=== PATIENT | female | born 1950 | race Caucasian/White ===

== ENCOUNTER → 2016-07-07 | Outpatient (CLI) | payer BC ==
[~2016-07-07] MED LIST: ASPCH81X PO; CLTP PO; HYDC25 PO; LEVOTHYROXIN PO; LISI40TA PO; MULT-506 PO; SIMV20TA2 PO
== END | disposition home or self-care (01) ==
LOC: C.PATHSPEC 15:58
PROVIDERS: ATTEND Obstetrics & Gynecology
DX: N90.4 Leukoplakia of vulva (principal)

== ENCOUNTER 2020-07-27 20:54 | Inpatient (IN) ==
[2020-07-27] MEDS ORDERED: ONDANSETRON INJ 2 MG/ML 2 ML VIAL IV STA (21:06)
[2020-07-27] MEDS ORDERED: fentaNYL citrate 100 MCG/2 ML VIAL IV ONE (21:06)
--- NOTE | 2020-07-27 21:30 | Emergency Department Note ---
Impression & Plan Fall, Closed fracture of right hip ED Provider Note Provider: Giancarlo Gray MD DATE OF SERVICE: 07/27/2020 CHIEF COMPLAINT: HISTORY OF PRESENT ILLNESS: Patient is a 70-year-old female with a history of hypothyroidism, hypertension, and hyperlipidemia presenting here today after a ground-level fall. Patient states he was walking back from neighbors and slipped on the ice and fell and heard a crack in her right hip. Was unable to ambulate after this. Denies drinking or loss conscious. Denies injury to the other extremities either upper or the left leg. Patient denies any numbness in her feet. Patient denies significant shortness of breath or chest pain. She denies abdominal pain but states she does feel nauseous. Did receive some fentanyl prior to arrival and states she only has significant pain in her right hip if she tries to move it. At rest no significant pain. REVIEW OF SYSTEMS: A total of 10 review of systems was obtained and negative except as stated above in the HPI. PAST MEDICAL HISTORY: As noted above MEDICATIONS: Reviewed home medication list includes 81 mg aspirin SOCIAL HISTORY: Non-smoker, lives at home PHYSICAL EXAM: GENERAL: alert and oriented in no acute distress on stretcher with the right leg supported on pillows appears somewhat uncomfortable Head: normocephalic and atraumatic EYES: No injection, discharge or icterus. NECK: Trachea midline. Supple. LUNGS: Airway patent. No retractions. Breath sounds clear with good air entry bilaterally. HEART: Regular rate and rhythm. No chest wall tenderness ABDOMEN: Soft and non-tender, without guarding or rebound. Stable pelvis to palpation. SKIN: Acyanotic, warm, dry, without rashes EXTREMITIES: Without swelling, tenderness or deformity except for pain with ROM around the right hip. No obvious deformity of the right knee or lower leg or foot. 2+ right DP pulse. NEUROLOGICAL: No aphasia. No facial droop or slurred speech. . Sensation to gross touch normal in the bilateral lower extremities. EK beats per normal sinus rhythm. No PVC or PAC. No acute ST segment elevation noted. Lateral T wave inversions noted. QTc 442 CONTINUOUS CARDIAC MONITORING: was ordered and showed a heart rate of 72 bpm in normal sinus rhythm GCS 15. Patient's laboratory studies and imaging reviewed. Differential includes Fracture, dislocation, contusion, intra-abdominal, pneumothorax, intrathoracic, intracranial, neurologic, compartment syndrome, rhabdomyolysis, as well as other pathologies. IMPRESSION/MEDICAL DECISION MAKING: Patient presents after fall without striking her head complaining of right hip pain with movement. Neurovascular intact in this leg. Imaging obtained of the femur and pelvis. Evidence of right greater trochanter fracture. No open wound noted. No other significant deformity of the right lower leg or the other extremities noted. Patient not strike her head and I doubt acute intracranial injury. Benign abdomen otherwise. Pelvis appears stable on exam. Do not believe we need additional CT imaging. No prior orthopedic history on-call orthopedics was alerted to what appears to be a right greater trochanteric fracture. Patient requires admission for surgical repair. Discussed with Dr. Brown she states she has no known relationship with the orthopedics group and was okay utilizing the on-call group ([facility]). Rodgers will be placed. Believe the nausea is experiencing secondary to the pain medicines he received both here and prior to arrival. Given some Tylenol here. With the patient's permission her's daughter was updated via phone. DIAGNOSIS: Fall, right hip fracture DISPOSITION: Hospitalist will evaluate Patient was agreeable with this plan. Past Med/Surg History Medical History (Updated 07/27/20 @ 22:11 by Giancarlo Gray M.D.) Cervical dysplasia Hyperplastic colon polyp 08/2012 colonoscopy Surgical History (Updated 06/05/19 @ 18:14 by Alexy Giraldo III, MD) S/P LEEP (loop electrosurgical excision procedure) Family History Mother Stroke Hypertension Aunt Breast cancer Father Hypertension Social History Smoking Status: Never smoker Hx Alcohol Use: Yes Alcohol type: wine Hx Substance Use: No marital status: Current Living Situation: Spouse current occupational status: retired Feels Safe at Home: Yes Allergies Allergies Allergy/AdvReac Type Severity Reaction Status Date / Time amoxicillin Allergy Mild Rash Verified 07/27/20 21:15 Home Meds Home Medications Medication Instructions Recorded Confirmed aspirin 81 mg chewable tablet 81 mg PO DAILY 06/04/19 07/27/20 timolol maleate 0.25 % eye drops 1 drops OP Q12H ml 06/04/19 07/27/20 ascorbic acid (vitamin C) 500 mg 500 mg PO DAILY 06/06/19 07/27/20 capsule [id number]-V3-swk-Xp-uwiia-mnqd-boron 1 tab PO DAILY 06/06/19 07/27/20 600 mg-200 unit-40 mg-7.5 mg tablet multivitamin 1 tab PO DAILY 06/06/19 07/27/20 turmeric root extract 500 mg 500 mg PO BID 06/08/20 07/27/20 capsule diclofenac sodium 2 gm TOP QID PRN 07/27/20 07/27/20 Previous Rx's Medication Instructions Recorded lisinopril 40 mg tablet 40 mg PO DAILY #90 tab 04/04/19 hydrochlorothiazide 25 mg tablet 25 mg PO DAILY #90 tab 04/15/19 simvastatin 20 mg tablet 20 mg PO QPM #90 tab 12/17/19 levothyroxine 75 mcg tablet 75 mcg PO DAILY #90 tab 05/12/20 Results & Data (ED) Vital Signs Vital Signs - 24 hr 07/27/20 21:08 07/27/20 21:59 07/27/20 22:00 Temperature 36.5 C Temperature Source Oral Pulse Rate 73 73 Pulse Rate [Left Apical] 66 Pulse Rate from SpO2 Sensor 72 Respiratory Rate 20 20 12 Respiratory Effort / Characteristics Non-Labored Spontaneous Respiratory Depth Normal Blood Pressure 159/80 H 137/90 Blood Pressure [Left Arm] 149/67 H Blood Pressure Mean 106 105 Blood Pressure Mean [Left Arm] 94 Pulse Oximetry 98 100 96 Oxygen Delivery Method Room Air Room Air Room Air Sepsis New/Unexplained Change in Mental Status N/A Sepsis Action Taken by Nursing No Action Required 07/27/20 22:30 07/27/20 23:00 Temperature Temperature Source Pulse Rate 64 66 Pulse Rate [Left Apical] Pulse Rate from SpO2 Sensor 65 Respiratory Rate 14 14 Respiratory Effort / Characteristics Respiratory Depth Blood Pressure 130/63 112/57 L Blood Pressure [Left Arm] Blood Pressure Mean 85 75 Blood Pressure Mean [Left Arm] Pulse Oximetry 100 99 Oxygen Delivery Method Room Air Room Air Sepsis New/Unexplained Change in Mental Status Sepsis Action Taken by Nursing Laboratory Data Result diagrams: 07/27/20 21:49 07/27/20 21:49 Lab Results 07/27/20 07/27/20 07/27/20 Range/Units 21:49 21:49 21:49 WBC 9.89 (4.8-10.8) K/uL RBC 4.16 L (4.2-5.4) M/uL Hgb 13.5 (12.0-16.0) g/dL Hct 39.7 (37-47) % MCV 95.4 (80-100) fL MCH 32.5 (25-34) pg MCHC 34.0 (32-36) g/dL RDW Std Deviation 47.1 H (36.4-46.3) fL RDW Coeff of [place] 13.6 (11.5-14.5) % Plt Count 272 (130-400) K/uL MPV 10.7 H (7.4-10.4) fL Immature Gran % (Auto) 0.1 % Neut % (Auto) 82.6 % Lymph % (Auto) 12.4 % [place] % (Auto) 4.0 % Eos % (Auto) 0.5 % Baso % (Auto) 0.4 % Neut # (Auto) 8.16 H (1.4-6.5) K/uL Lymph # (Auto) 1.23 (1.2-3.4) K/uL [place] # (Auto) 0.40 (0.11-0.59) K/uL Eos # (Auto) 0.05 (0-0.5) K/uL Baso # (Auto) 0.04 (0-0.2) K/uL Immature Gran # (Auto) 0.01 (0.00-0.02) K/uL PT 10.3 (9.0-12.0) Seconds INR 1.0 (0.9-1.1) APTT 20.4 L (21.0-31.0) Seconds PTT Ratio 0.7 Sodium (136-145) mmol/L Potassium (3.5-5.1) mmol/L Chloride (98-107) mmol/L Carbon Dioxide (21-32) mmol/L Anion Gap (3-11) BUN (7-18) mg/dl Creatinine (0.6-1.2) mg/dl Est Cr Clr Drug Dosing ml/min Est GFR ( Amer) Est GFR (Non-Af Amer) BUN/Creatinine Ratio (10-20) Glucose (70-99) mg/dl Calcium (8.5-10.1) mg/dl Urine Color Urine Appearance (Clear) Urine pH (4.5-7.5) Ur Specific [place] (1.000-1.030) Urine Protein (Negative) Urine Glucose (UA) (Negative) Urine Ketones (Negative) Urine Blood (Negative) Urine Nitrite (Negative) Urine Bilirubin (Negative) Urine Urobilinogen (Negative) Ur Leukocyte Esterase (Negative) COVID-19 Eval Order Blood Type A Positive Antibody Screen NEGATIVE 07/27/20 07/27/20 07/27/20 Range/Units 21:49 22:05 22:20 WBC (4.8-10.8) K/uL RBC (4.2-5.4) M/uL Hgb (12.0-16.0) g/dL Hct (37-47) % MCV (80-100) fL MCH (25-34) pg MCHC (32-36) g/dL RDW Std Deviation (36.4-46.3) fL RDW Coeff of [place] (11.5-14.5) % Plt Count (130-400) K/uL MPV (7.4-10.4) fL Immature Gran % (Auto) % Neut % (Auto) % Lymph % (Auto) % [place] % (Auto) % Eos % (Auto) % Baso % (Auto) % Neut # (Auto) (1.4-6.5) K/uL Lymph # (Auto) (1.2-3.4) K/uL [place] # (Auto) (0.11-0.59) K/uL Eos # (Auto) (0-0.5) K/uL Baso # (Auto) (0-0.2) K/uL Immature Gran # (Auto) (0.00-0.02) K/uL PT (9.0-12.0) Seconds INR (0.9-1.1) APTT (21.0-31.0) Seconds PTT Ratio Sodium 141 (136-145) mmol/L Potassium 3.3 L (3.5-5.1) mmol/L Chloride 106 (98-107) mmol/L Carbon Dioxide 24 (21-32) mmol/L Anion Gap 11.0 (3-11) BUN 15 (7-18) mg/dl Creatinine 0.87 (0.6-1.2) mg/dl Est Cr Clr Drug Dosing 55.5 ml/min Est GFR ( Amer) 77.7 Est GFR (Non-Af Amer) 67.0 BUN/Creatinine Ratio 17.8 (10-20) Glucose 109 H (70-99) mg/dl Calcium 8.4 L (8.5-10.1) mg/dl Urine Color Yellow Urine Appearance Clear (Clear) Urine pH 5.0 (4.5-7.5) Ur Specific [place] 1.014 (1.000-1.030) Urine Protein Negative (Negative) Urine Glucose (UA) Negative (Negative) Urine Ketones Negative (Negative) Urine Blood Negative (Negative) Urine Nitrite Negative (Negative) Urine Bilirubin Negative (Negative) Urine Urobilinogen Negative (Negative) Ur Leukocyte Esterase Trace H (Negative) COVID-19 Eval Order Covid19 [facility] Blood Type Antibody Screen Administered Medications Discontinued Medications Fentanyl Citrate (Fentanyl Citrate 100 Mcg/2 Ml Vial) 25 mcg IV NOW ONE Stop: 07/27/20 21:07 Last Admin: 07/27/20 21:18 Dose: 25 mcg Documented by: [id number] Acetaminophen (Ofirmev) 1,000 mg in 100 mls @ 400 mls/hr IV NOW STA Stop: 07/27/20 22:19 Last Infusion: 07/27/20 23:01 Dose: 0 mls/hr Documented by: [id number] Admin: 07/27/20 22:35 Dose: 400 mls/hr Documented by: [id number] Ondansetron HCl (Ondansetron Inj 2 Mg/Ml 2 Ml Vial) 4 mg IV NOW STA Stop: 07/27/20 21:07 Last Admin: 07/27/20 21:17 Dose: 4 mg Documented by: [id number] Discharge Plan Visit Data Chief Complaint: Hip Pain Stated Complaint: FALL/rt. HIP PAIN W/ DEFORMITY ED Provider: Giancarlo Gray Discharge Problem: Fall, Closed fracture of right hip Patient Disposition: Being Evaluated by Hospitalist Forms Stand Alone Forms: My [facility] Prescriptions Prescriptions: No Action lisinopril 40 mg tablet 40 mg PO DAILY Qty: 90 RF: 3 hydrochlorothiazide 25 mg tablet 25 mg PO DAILY Qty: 90 RF: 3 simvastatin 20 mg tablet 20 mg PO QPM Qty: 90 RF: 3 levothyroxine 75 mcg tablet 75 mcg PO DAILY Qty: 90 RF: 3 aspirin 81 mg tablet,chewable 81 mg PO DAILY RF: 0 timolol maleate 0.25 % drops 1 drops OP Q12H RF: 0 Ww-A4-how-cjtu-tug-qmdj-bor [id number] id-feed-hu-mg tablet 1 tab PO DAILY RF: 0 ascorbic acid (vitamin C) 500 mg capsule 500 mg PO DAILY RF: 0 multivitamin [Daily Multi-Vitamin] tablet 1 tab PO DAILY RF: 0 turmeric root extract 500 mg capsule 500 mg PO BID RF: 0 diclofenac sodium 1 % gel 2 gm TOP QID PRN (Reason: Pain) RF: 0 Referrals Referrals: Alexy Giraldo III, MD [Primary Care Provider] - Discharge Problem: Fall Qualifiers: Encounter type: initial encounter Qualified Code(s): W19.XXXA - Unspecified fall, initial encounter Closed fracture of right hip Qualifiers: Encounter type: initial encounter Qualified Code(s): S72.001A - Fracture of unspecified part of neck of right femur, initial encounter for closed fracture
[2020-07-27] MEDS ORDERED: ACETAMINOPHEN 1,000 MG/100 ML VIAL IV STA (22:05)
[2020-07-27 22:07] LABS: Basophils # (auto) 0.04 K/uL (0-0.2); Basophils % (auto) 0.4 %; Eosinophils # (auto) 0.05 K/uL (0-0.5); Eosinophils % (auto) 0.5 %; Hematocrit (blood only) 39.7 % (37-47); Hemoglobin 13.5 g/dL (12.0-16.0); Immature Granulocytes # (auto) 0.01 K/uL (0.00-0.02); Immature Granulocytes % (auto) 0.1 %; Lymphocytes # (auto) 1.23 K/uL (1.2-3.4); Lymphocytes % (auto) 12.4 %; Mean Corpuscular Hemoglobin 32.5 pg (25-34); Mean Corpuscular Volume 95.4 fL (80-100); Mean Platelet Volume 10.7 fL (7.4-10.4); Neutrophils # (auto) 8.16 K/uL (1.4-6.5); Neutrophils % (auto) 82.6 %; Platelet Count 272 K/uL (130-400); RDW Coefficient of Variation 13.6 % (11.5-14.5); RDW Standard Deviation 47.1 fL (36.4-46.3); Red Blood Count 4.16 M/uL (4.2-5.4); White Blood Count 9.89 K/uL (4.8-10.8)
[2020-07-27 22:16] LABS: Partial Thromboplastin Ratio 0.7; Partial Thromboplastin Time 20.4 Seconds (21.0-31.0); Prothrombin Time 10.3 Seconds (9.0-12.0)
[2020-07-27 22:26] LABS: BUN Creatinine Ratio 17.8 (10-20); Calcium 8.4 mg/dl (8.5-10.1); Creatinine Clr Calc Pharmacy 55.5 ml/min; Est GFR (African American) 77.7; Potassium 3.3 mmol/L (3.5-5.1)
[2020-07-27 23:05] LABS: Appearance Urine Clear (Clear); Bacteria Urine Automated Negative (Negative); Bilirubin Urine Negative (Negative); Blood Urine Negative (Negative); Color Urine Yellow; Epithelial Cell Urine Auto 20-30 /lpf (0-5); Glucose Urine UA Negative (Negative); Ketones Urine Negative (Negative); Leukocyte Esterase Urine Trace (Negative); Nitrite Urine Negative (Negative); Protein Urine Negative (Negative); RBC Urine Automated 0-4 /hpf (0-4); Specific Gravity Urine 1.014 (1.000-1.030); Urobilinogen Urine Negative (Negative)
--- NOTE | 2020-07-27 23:42 | History & Physical Report ---
Date of Service July 27, 2020 Assessment & Plan (1) Closed fracture of right hip: Admit to medical surgical floor Acetaminophen 650 mg p.o. every 6 hours as needed mild pain or temperature [place] 5/325 1 p.o. every 4 as needed moderate pain Dilaudid 0.25-0.5 mg IV every 3 hours as needed severe pain Geriatric hip fracture protocol Orthopedic surgery has been consulted from the ED Present on Admission?: Yes (2) Fall: Status post mechanical fall on the snow and ice. Patient is typically very physically active Present on Admission?: Yes (3) Impaired fasting glucose: Glucose 109 upon admission. Would not perform blood sugar checks unless blood sugar is elevated in morning laboratories Present on Admission?: Yes (4) Hypertension: Hold aspirin, and HCTZ Continue lisinopril at reduced dose from 40 to 20 mg p.o. daily with hold para meters Present on Admission?: Yes (5) Hypercholesteremia: Continue simvastatin 20 mg every evening Present on Admission?: Yes (6) Hypothyroidism: Continue levothyroxine sodium 75 mcg daily Present on Admission?: Yes History of Present Illness Chief Complaint: The patient presents to the emergency department after she slipped and fell while walking, sustaining immediate right hip pain. Primary Care Provider: Alexy Giraldo MD The patient is a 70-year-old female with a past medical history including impaired fasting glucose, hypothyroidism, hypertension, hypercholesterolemia and glaucoma. She was walking outside on the snow after visiting with a friend, slipped and fell, landed on her right hip, and sustained immediate pain. X-rays in the emergency department showed a closed right hip fracture. Allergies Allergy/AdvReac Type Severity Reaction Status Date / Time amoxicillin Allergy Mild Rash Verified 07/27/20 21:15 Home Medications Medication Instructions Recorded Confirmed Type lisinopril 40 mg tablet 40 mg PO DAILY #90 tab 04/04/19 07/27/20 Rx hydrochlorothiazide 25 mg tablet 25 mg PO DAILY #90 tab 04/15/19 07/27/20 Rx aspirin 81 mg chewable tablet 81 mg PO DAILY 06/04/19 07/27/20 History timolol maleate 0.25 % eye drops 1 drops OP Q12H ml 06/04/19 07/27/20 History ascorbic acid (vitamin C) 500 mg 500 mg PO DAILY 06/06/19 07/27/20 History capsule hkmcswt-L2-pbq-Ge-lptio-xljx-boron 1 tab PO DAILY 06/06/19 07/27/20 History 600 mg-200 unit-40 mg-7.5 mg tablet multivitamin 1 tab PO DAILY 06/06/19 07/27/20 History simvastatin 20 mg tablet 20 mg PO QPM #90 tab 12/17/19 07/27/20 Rx levothyroxine 75 mcg tablet 75 mcg PO DAILY #90 tab 05/12/20 07/27/20 Rx turmeric root extract 500 mg 500 mg PO BID 06/08/20 07/27/20 History capsule diclofenac sodium 2 gm TOP QID PRN 07/27/20 07/27/20 History Past Med/Surg History Medical History (Updated 07/27/20 @ 22:11 by Giancarlo Gray M.D.) Cervical dysplasia Hyperplastic colon polyp 08/2012 colonoscopy Surgical History (Updated 06/05/19 @ 18:14 by Alexy Giraldo III, MD) S/P LEEP (loop electrosurgical excision procedure) Family History Mother Stroke Hypertension Aunt Breast cancer Father Hypertension Social History Smoking Status: Never smoker Hx Alcohol Use: Yes Alcohol type: wine Hx Substance Use: No Preferred Language: Polish Communication Ability: Effective Assistant Technician Required: No Beliefs That Will Affect Care: None marital status: Current Living Situation: Alone current occupational status: retired Feels Safe at Home: Yes Assistive Devices: Glasses Review of Systems Review of Systems: The patient denies chest pain, palpitations, shortness of breath, dyspnea on exertion, cough, lower extremity swelling, sore throat, fevers, chills, sweats, fatigue, nausea, vomiting, diarrhea , constipation, abdominal pain, pelvic pain, blood in urine or stool, dysuria, urinary frequency or urgency, lightheadedness, dizziness, headache, memory loss, loss of consciousness, rash, abnormal bruising or bleeding, generalized weakness, numbness or tingling in arms left leg, generalized arthralgias or myalgias, back or neck pain, or night sweats. The review of systems is otherwise negative other than for that already noted above, and at least 10 systems have been reviewed. Physical Exam Physical Exam: The patient is awake, alert and oriented 3, well developed and well nourished, normocephalic and atraumatic, lying in bed and in mild acute distress secondary to right hip pain HEENT--PERRL, EOMI, mucous membranes and oropharynx normal. Neck--supple. No JVD. No bruits. Thyroid normal, trachea midline, no adenopathy. Heart--normal S1 and S2. No murmurs, rubs or gallops. Lungs--clear bilaterally, no respiratory distress, no accessory muscle use. Abdomen--normal bowel sounds and soft. Nontender. Nondistended, no hernias or masses, no organomegaly. Extremities--no cyanosis or clubbing. No edema. Dermatologic--normal skin turgor, normal color, no abnormal lymph nodes, no rash. Neurologic--cranial nerves II through XII grossly intact. Rheumatologic--limited exam due to hip pain Psychiatric--normal affect. Results & Data Results & Data ([facility]) Vital Signs (Past 12 Hours) Vital Signs Temp Pulse Pulse Resp BP BP Pulse Ox 07/27/20 23:00 66 14 112/57 L 99 07/27/20 22:30 64 14 130/63 100 07/27/20 22:00 73 12 137/90 96 07/27/20 21:59 66 20 149/67 H 100 07/27/20 21:08 97.7 F 73 20 159/80 H 98 Laboratory Results Laboratory Results WBC 9.89 K/uL (4.8-10.8) 07/27/20 21:49 RBC 4.16 M/uL (4.2-5.4) L 07/27/20 21:49 Hgb 13.5 g/dL (12.0-16.0) 07/27/20 21:49 Hct 39.7 % (37-47) 07/27/20 21:49 MCV 95.4 fL (80-100) 07/27/20 21:49 MCH 32.5 pg (25-34) 07/27/20 21:49 MCHC 34.0 g/dL (32-36) 07/27/20 21:49 RDW Std Deviation 47.1 fL (36.4-46.3) H 07/27/20 21:49 RDW Coeff of [place] 13.6 % (11.5-14.5) 07/27/20 21:49 Plt Count 272 K/uL (130-400) 07/27/20 21:49 MPV 10.7 fL (7.4-10.4) H 07/27/20 21:49 Immature Gran % (Auto) 0.1 % 07/27/20 21:49 Neut % (Auto) 82.6 % 07/27/20 21:49 Lymph % (Auto) 12.4 % 07/27/20 21:49 [place] % (Auto) 4.0 % 07/27/20 21:49 Eos % (Auto) 0.5 % 07/27/20 21:49 Baso % (Auto) 0.4 % 07/27/20 21:49 Neut # (Auto) 8.16 K/uL (1.4-6.5) H 07/27/20 21:49 Lymph # (Auto) 1.23 K/uL (1.2-3.4) 07/27/20 21:49 [place] # (Auto) 0.40 K/uL (0.11-0.59) 07/27/20 21:49 Eos # (Auto) 0.05 K/uL (0-0.5) 07/27/20 21:49 Baso # (Auto) 0.04 K/uL (0-0.2) 07/27/20 21:49 Immature Gran # (Auto) 0.01 K/uL (0.00-0.02) 07/27/20 21:49 PT 10.3 Seconds (9.0-12.0) 07/27/20 21:49 INR 1.0 (0.9-1.1) 07/27/20 21:49 APTT 20.4 Seconds (21.0-31.0) L 07/27/20 21:49 PTT Ratio 0.7 07/27/20 21:49 Sodium 141 mmol/L (136-145) 07/27/20 21:49 Potassium 3.3 mmol/L (3.5-5.1) L 07/27/20 21:49 Chloride 106 mmol/L (98-107) 07/27/20 21:49 Carbon Dioxide 24 mmol/L (21-32) 07/27/20 21:49 Anion Gap 11.0 (3-11) 07/27/20 21:49 BUN 15 mg/dl (7-18) 07/27/20 21:49 Creatinine 0.87 mg/dl (0.6-1.2) 07/27/20 21:49 Est Cr Clr Drug Dosing 55.5 ml/min 07/27/20 21:49 Est GFR ( Amer) 77.7 07/27/20 21:49 Est GFR (Non-Af Amer) 67.0 07/27/20 21:49 BUN/Creatinine Ratio 17.8 (10-20) 07/27/20 21:49 Glucose 109 mg/dl (70-99) H 07/27/20 21:49 Calcium 8.4 mg/dl (8.5-10.1) L 07/27/20 21:49 Urine Color Yellow 07/27/20 22:20 Urine Appearance Clear (Clear) 07/27/20 22:20 Urine pH 5.0 (4.5-7.5) 07/27/20 22:20 Ur Specific [place] 1.014 (1.000-1.030) 07/27/20 22:20 Urine Protein Negative (Negative) 07/27/20 22:20 Urine Glucose (UA) Negative (Negative) 07/27/20 22:20 Urine Ketones Negative (Negative) 07/27/20 22:20 Urine Blood Negative (Negative) 07/27/20 22:20 Urine Nitrite Negative (Negative) 07/27/20 22:20 Urine Bilirubin Negative (Negative) 07/27/20 22:20 Urine Urobilinogen Negative (Negative) 07/27/20 22:20 Ur Leukocyte Esterase Trace (Negative) H 07/27/20 22:20 Urine WBC (Auto) 1-5 /hpf (0-5) 07/27/20 22:20 Urine RBC (Auto) 0-4 /hpf (0-4) 07/27/20 22:20 U Hyaline Cast (Auto) 5-10 /lpf (0-5) H 07/27/20 22:20 U Epithel Cells (Auto) 20-30 /lpf (0-5) H 07/27/20 22:20 Urine Bacteria (Auto) Negative (Negative) 07/27/20 22:20 COVID-19 Eval Order Covid19 [facility] 07/27/20 22:05 SARS-CoV-2, RNA, NAAT NEGATIVE (NEGATIVE) 07/27/20 22:05 Blood Type A Positive 07/27/20 21:49 Antibody Screen NEGATIVE 07/27/20 21:49 None Code Status & VTE Plan Code Status Full code VTE Prophylaxis Plan VTE Prophylaxis will be ordered: Yes PG Care Time/CCT Total # of Minutes Spent Total Time Spent with Patient: Total time spent is greater than 50% in coordination of care (as documented) at patient's floor/unit and/or counseling patient: Coding Level of Care Code 18598 Initial Inpt Care Lvl 2 Diagnoses Closed fracture of right hip S72.001A Encounter type: initial encounter Fall W19.XXXA Encounter type: initial encounter Impaired fasting glucose R73.01 Hypertension I10 Hypercholesteremia E78.00 Hypothyroidism E03.9 (1) Closed fracture of right hip Encounter type: initial encounter Qualified Code(s): S72.001A - Fracture of unspecified part of neck of right femur, initial encounter for closed fracture (2) Fall Encounter type: initial encounter Qualified Code(s): W19.XXXA - Unspecified fall, initial encounter
[2020-07-28] MEDS ORDERED: HYDROmorphone INJ 0.5 MG/0.5 ML SYR IV PRN (00:39)
[2020-07-28] MEDS ORDERED: NALOXONE HCL 0.4 MG/1 ML VIAL/CARP IV PRN ×3 (00:39→15:23)
[2020-07-28] MEDS ORDERED: bisacodyL 10 MG SUPP PR PRN (00:39)
[2020-07-28] MEDS ORDERED: MAGNESIUM HYDROXIDE SUSP 30 ML UDC PO PRN (00:39)
[2020-07-28] MEDS: HYDROmorphone INJ 0.5 MG/0.5 ML SYR IV PRN ×6 (00:59→23:24)
[2020-07-28] MEDS: LACTATED RINGER'S 1,000 ML IV SCH ×2 (01:01→15:41)
[2020-07-28] MEDS: TIMOLOL GFS 0.5% OPH SOLN 74 DROPS/5 ML BTL OP SCH ×3 (02:01→22:02)
[2020-07-28] MEDS: NSS + 20MEQ KCL 20 MEQ/1,000 ML BAG IV SCH ×2 (05:22→20:09)
[2020-07-28] MEDS: LEVOTHYROXINE SODIUM 75 MCG TABLET PO SCH (05:48)
[2020-07-28] MEDS ORDERED: CLINDAMYCIN 600 MG/54 ML BAG IV SCH (06:00)
[2020-07-28] MEDS: lisinopril 20 MG TAB PO SCH (07:21)
--- NOTE | 2020-07-28 07:33 | XRay Report ---
XR pelvis 1-2V routine, XR femur RT 2V routine CLINICAL HISTORY: fall, R hip pain with movement COMPARISON STUDY: None. FINDINGS: Comminuted and slightly displaced intertrochanteric fracture the proximal right femur. No f racture or dislocation within the pelvis or left hip. Soft tissues are unremarkable. The sacrum appea rs intact. The mid to distal right femur is maintained. IMPRESSION: Comminuted and slightly displaced intertrochanteric fracture of the proximal right femur . ACT 112: Negative or not required by law. Electronically signed by: Clay Brooks M.D. 07/28/2020 7:32 AM
[2020-07-28 07:37] LABS: Basophils # (auto) 0.02 K/uL (0-0.2); Basophils % (auto) 0.3 %; Eosinophils # (auto) 0.02 K/uL (0-0.5); Eosinophils % (auto) 0.3 %; Hematocrit (blood only) 34.1 % (37-47); Hemoglobin 11.6 g/dL (12.0-16.0); Immature Granulocytes # (auto) 0.01 K/uL (0.00-0.02); Immature Granulocytes % (auto) 0.1 %; Lymphocytes # (auto) 1.04 K/uL (1.2-3.4); Lymphocytes % (auto) 13.9 %; Mean Corpuscular Hemoglobin 32.1 pg (25-34); Mean Corpuscular Volume 94.5 fL (80-100); Mean Platelet Volume 10.7 fL (7.4-10.4); Monocytes # (auto) 0.67 K/uL (0.11-0.59); Neutrophils % (auto) 76.4 %; Platelet Count 275 K/uL (130-400); RDW Coefficient of Variation 13.8 % (11.5-14.5); RDW Standard Deviation 47.9 fL (36.4-46.3); Red Blood Count 3.61 M/uL (4.2-5.4); White Blood Count 7.46 K/uL (4.8-10.8)
--- NOTE | 2020-07-28 07:40 | XRay Report ---
XR chest 1V portable HISTORY: Right hip pain. Right hip fracture. Fall. COMPARISON: None. FINDINGS: The lungs are clear. Cardiac silhouette is top normal in size. No pleural effusions. No pne umothorax. IMPRESSION: No acute process. ACT 112: Negative or not required by law. Electronically signed by: Clay Brooks M.D. 07/28/2020 7:39 AM
[2020-07-28 07:57] LABS: Partial Thromboplastin Ratio 0.8; Partial Thromboplastin Time 22.4 Seconds (21.0-31.0); Prothrombin Time 10.5 Seconds (9.0-12.0)
[2020-07-28 08:07] LABS: BUN Creatinine Ratio 22.9 (10-20); Blood Urea Nitrogen 16 mg/dl (7-18); Calcium 8.5 mg/dl (8.5-10.1); Carbon Dioxide 26 mmol/L (21-32); Chloride 107 mmol/L (98-107); Est GFR (African American) 101.5; Est GFR (Non-African American) 87.6; Glucose 88 mg/dl (70-99); Magnesium 2.2 mg/dl (1.8-2.4); Phosphorus 3.8 mg/dl (2.5-4.9); Potassium 4.1 mmol/L (3.5-5.1); Sodium 141 mmol/L (136-145); Troponin I < 0.015 ng/ml (0-0.045)
--- NOTE | 2020-07-28 10:32 | Orthopedic Consultation ---
Date of Consultation July 28, 2020 Assessment & Plan (1) Closed fracture of right hip: Patient will require a trochanteric femoral nailing of the right hip. Dr. Leonardo Parada states that the patient is cleared for surgery. Dr. Brown aware the patient and has reviewed her x-rays. Plan for right TFN this morning. Supervising Physician Co-Signing Physician Notes Patient seen and examined in PACU, agree with above assessment plan Right lower extremity physical exam neurovascular sensory intact +2 dorsalis pedis pulse, short and externally rotated, skin overlying right hip is clean dry and intact. Right unstable intertrochanteric hip fracture The patient is a 70yo female with displaced right intertrochanteric hip fracture sustained after a fall from standing height. The patient was medically stabili zed on 07/28/2020. I indicated the patient for right hip cephalomedullary nail. The patient was informed of the risks and benefits of surgery, which include but not limited to infection, bleeding, blood clots, damage to nerves, vessels, bone and soft tissue, dislocation, leg length discrepancy, malunion, nonunion, failure of the implants, need for additional surgery and . The patient chose to proceed with surgical intervention and informed consent was obtained. 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 As she neared home she inadvertently lost her balance and fell onto her right hip. He states that she heard the bone break and had immediate pain in her hip and groin. She had difficulty ambulating and was brought to the emergency room. There was no loss of consciousness. There was no shortness of breath or chest pain prior to or after the fall. She was seen by the staff and x-rays were taken. It was found that she had an intertrochanteric hip fracture of the right hip. was notified. Patient was admitted under hospitalist service and we have been asked to take care of her hip fracture. Allergies Allergy/AdvReac Type Severity Reaction Status Date / Time amoxicillin Allergy Mild Rash Verified 07/27/20 21:15 Home Medications Medication Instructions Recorded Confirmed Type lisinopril 40 mg tablet 40 mg PO DAILY #90 tab 04/04/19 07/27/20 Rx hydrochlorothiazide 25 mg tablet 25 mg PO DAILY #90 tab 04/15/19 07/27/20 Rx aspirin 81 mg chewable tablet 81 mg PO DAILY 06/04/19 07/27/20 History timolol maleate 0.25 % eye drops 1 drops OP Q12H ml 06/04/19 07/27/20 History ascorbic acid (vitamin C) 500 mg 500 mg PO DAILY 06/06/19 07/27/20 History capsule [id number]-Li-[id number]-kbkr-boron 1 tab PO DAILY 06/06/19 07/27/20 History 600 mg-200 unit-40 mg-7.5 mg tablet multivitamin 1 tab PO DAILY 06/06/19 07/27/20 History simvastatin 20 mg tablet 20 mg PO QPM #90 tab 12/17/19 07/27/20 Rx levothyroxine 75 mcg tablet 75 mcg PO DAILY #90 tab 05/12/20 07/27/20 Rx turmeric root extract 500 mg 500 mg PO BID 06/08/20 07/27/20 History capsule diclofenac sodium 2 gm TOP QID PRN 07/27/20 07/27/20 History Patient History Medical History Cervical dysplasia Hyperplastic colon polyp 08/2012 colonoscopy Surgical History S/P LEEP (loop electrosurgical excision procedure) Family History Mother Stroke Hypertension Aunt Breast cancer maternal aunt Father Hypertension Social History Smoking Status: Never smoker Hx Alcohol Use: Yes Alcohol type: wine Hx Substance Use: No Preferred Language: Swedish Communication Ability: Effective 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 Alert and oriented x3. No acute distress. Pleasant and cooperative. Currently states that her pain is controlled. On examination of her right lower extremity, she has the hip flexed to approximately 60 degrees and externally rotated which states that is the most comfortable position for her. She has good range of motion of her right ankle and toes. No range of motion was attempted with the right knee or hip. She is nontender on palpation of the right knee and there is no swelling noted. Hip is mildly tender on palpation but there is no areas of abrasions or ecchymosis noted. Left lower extremity is within normal limits and is nontender at the hip knee and ankle. Upper extremities are unaffected and she is nontender at the shoulders, elbows and wrists. Range of motion is within normal limits. Distal pulses are equal bilaterally of the upper and lower extremities. She has no pain of the cervical, thoracic, lumbar spine at this time. There is no gross motor or sensory loss seen at this time. Results & Data ([facility]) Vital Signs (Past 12 Hours) Vital Signs Temp Pulse Pulse Resp BP BP Pulse Ox 07/28/20 07:10 36.9 C 77 16 173/77 H 97 07/28/20 00:48 36.6 C 71 18 152/71 H 99 07/28/20 00:00 65 15 107/51 L 98 07/27/20 23:30 64 15 103/45 L 98 07/27/20 23:00 66 14 112/57 L 99 07/27/20 22:30 64 14 130/63 100 Laboratory Results Laboratory Results WBC 7.46 K/uL (4.8-10.8) 07/28/20 06:50 RBC 3.61 M/uL (4.2-5.4) L 07/28/20 06:50 Hgb 11.6 g/dL (12.0-16.0) L 07/28/20 06:50 Hct 34.1 % (37-47) L 07/28/20 06:50 MCV 94.5 fL (80-100) 07/28/20 06:50 MCH 32.1 pg (25-34) 07/28/20 06:50 MCHC 34.0 g/dL (32-36) 07/28/20 06:50 RDW Std Deviation 47.9 fL (36.4-46.3) H 07/28/20 06:50 RDW Coeff of Carolyn 13.8 % (11.5-14.5) 07/28/20 06:50 Plt Count 275 K/uL (130-400) 07/28/20 06:50 MPV 10.7 fL (7.4-10.4) H 07/28/20 06:50 Immature Gran % (Auto) 0.1 % 07/28/20 06:50 Neut % (Auto) 76.4 % 07/28/20 06:50 Lymph % (Auto) 13.9 % 07/28/20 06:50 Graves % (Auto) 9.0 % 07/28/20 06:50 Eos % (Auto) 0.3 % 07/28/20 06:50 Baso % (Auto) 0.3 % 07/28/20 06:50 Neut # (Auto) 5.70 K/uL (1.4-6.5) 07/28/20 06:50 Lymph # (Auto) 1.04 K/uL (1.2-3.4) L 07/28/20 06:50 Graves # (Auto) 0.67 K/uL (0.11-0.59) H 07/28/20 06:50 Eos # (Auto) 0.02 K/uL (0-0.5) 07/28/20 06:50 Baso # (Auto) 0.02 K/uL (0-0.2) 07/28/20 06:50 Immature Gran # (Auto) 0.01 K/uL (0.00-0.02) 07/28/20 06:50 PT 10.5 Seconds (9.0-12.0) 07/28/20 06:50 INR 1.0 (0.9-1.1) 07/28/20 06:50 APTT 22.4 Seconds (21.0-31.0) 07/28/20 06:50 PTT Ratio 0.8 07/28/20 06:50 Sodium 141 mmol/L (136-145) 07/28/20 06:50 Potassium 4.1 mmol/L (3.5-5.1) D 07/28/20 06:50 Chloride 107 mmol/L (98-107) 07/28/20 06:50 Carbon Dioxide 26 mmol/L (21-32) 07/28/20 06:50 Anion Gap 7.0 (3-11) 07/28/20 06:50 BUN 16 mg/dl (7-18) 07/28/20 06:50 Creatinine 0.69 mg/dl (0.6-1.2) 07/28/20 06:50 Est Cr Clr Drug Dosing 70.0 ml/min 07/28/20 06:50 Est GFR ( Amer) 101.5 07/28/20 06:50 Est GFR (Non-Af Amer) 87.6 07/28/20 06:50 BUN/Creatinine Ratio 22.9 (10-20) H 07/28/20 06:50 Glucose 88 mg/dl (70-99) 07/28/20 06:50 Calcium 8.5 mg/dl (8.5-10.1) 07/28/20 06:50 Phosphorus 3.8 mg/dl (2.5-4.9) 07/28/20 06:50 Magnesium 2.2 mg/dl (1.8-2.4) 07/28/20 06:50 Troponin I < 0.015 ng/ml (0-0.045) 07/28/20 06:50 Albumin 3.0 gm/dl (3.4-5.0) L 07/28/20 06:50 Urine Color Yellow 07/27/20 22:20 Urine Appearance Clear (Clear) 07/27/20 22:20 Urine pH 5.0 (4.5-7.5) 07/27/20 22:20 Ur Specific [place] 1.014 (1.000-1.030) 07/27/20 22:20 Urine Protein Negative (Negative) 07/27/20 22:20 Urine Glucose (UA) Negative (Negative) 07/27/20 22:20 Urine Ketones Negative (Negative) 07/27/20 22:20 Urine Blood Negative (Negative) 07/27/20 22:20 Urine Nitrite Negative (Negative) 07/27/20 22:20 Urine Bilirubin Negative (Negative) 07/27/20 22:20 Urine Urobilinogen Negative (Negative) 07/27/20 22:20 Ur Leukocyte Esterase Trace (Negative) H 07/27/20 22:20 Urine WBC (Auto) 1-5 /hpf (0-5) 07/27/20 22:20 Urine RBC (Auto) 0-4 /hpf (0-4) 07/27/20 22:20 U Hyaline Cast (Auto) 5-10 /lpf (0-5) H 07/27/20 22:20 U Epithel Cells (Auto) 20-30 /lpf (0-5) H 07/27/20 22:20 Urine Bacteria (Auto) Negative (Negative) 07/27/20 22:20 COVID-19 Eval Order [facility] 07/27/20 22:05 SARS-CoV-2, RNA, NAAT NEGATIVE (NEGATIVE) 07/27/20 22:05 Blood Type A Positive 07/27/20 21:49 Antibody Screen NEGATIVE 07/27/20 21:49 Diagnostic Findings XR pelvis 1-2V routine, XR femur RT 2V routine CLINICAL HISTORY: fall, R hip pain with movement COMPARISON STUDY: None. FINDINGS: Comminuted and slightly displaced intertrochanteric fracture the proximal right femur. No fracture or dislocation within the pelvis or left hip. Soft tissues are unremarkable. The sacrum appears intact. The mid to distal right femur is maintained. IMPRESSION: Comminuted and slightly displaced intertrochanteric fracture of the proximal right femur. ACT 112: Negative or not required by law. (1) Closed fracture of right hip Encounter type: initial encounter Qualified Code(s): S72.001A - Fracture of unspecified part of neck of right femur, initial encounter for closed fracture
--- NOTE | 2020-07-28 11:06 | Anesthesiology Consultation ---
Date of Service July 28, 2020 Assessment & Plan Chart Review Chart Review: Acceptable Risk for Surgery and Patient NOT seen in Pre Admission Testing Consults Requested none ASA ASA3 Proposed Anesthesia Anesthesia Type: General History Surgery Operation Date: 07/28/20 08:50 Proposed Procedures p Right Long Troch Nail - Neo Collin Kevin, Height/Weight Height: 5 ft 6 in Weight: 67.4 kg Allergies Allergy/AdvReac Type Severity Reaction Status Date / Time amoxicillin Allergy Mild Rash Verified 07/27/20 21:15 Medications Home Medications Medication Instructions Recorded Confirmed Last Taken lisinopril 40 mg tablet 40 mg PO DAILY #90 tab 04/04/19 07/27/20 07/27/20 hydrochlorothiazide 25 mg tablet 25 mg PO DAILY #90 tab 04/15/19 07/27/20 07/27/20 aspirin 81 mg chewable tablet 81 mg PO DAILY 06/04/19 07/27/20 07/27/20 timolol maleate 0.25 % eye drops 1 drops OP Q12H ml 06/04/19 07/27/20 07/27/20 08:00 ascorbic acid (vitamin C) 500 mg 500 mg PO DAILY 06/06/19 07/27/20 07/27/20 capsule [id number]-[id number]-verw-boron 1 tab PO DAILY 06/06/19 07/27/20 07/27/20 600 mg-200 unit-40 mg-7.5 mg tablet multivitamin 1 tab PO DAILY 06/06/19 07/27/20 07/27/20 simvastatin 20 mg tablet 20 mg PO QPM #90 tab 12/17/19 07/27/20 07/26/20 levothyroxine 75 mcg tablet 75 mcg PO DAILY #90 tab 05/12/20 07/27/20 07/27/20 turmeric root extract 500 mg 500 mg PO BID 06/08/20 07/27/20 07/27/20 capsule diclofenac sodium 2 gm TOP QID PRN 07/27/20 07/27/20 Unknown Active Medications Generic Name Dose Route Start Last Admin Trade Name Freq PRN Reason Stop Dose Admin Hydromorphone HCl 0.5 mg 07/28/20 00:39 07/28/20 10:55 Hydromorphone Inj 0.5 Mg/0.5 Ml Syr IV 08/11/20 00:38 0.5 mg Q3H PRN Administration Pain (6,7,8,9,10) Lactated Ringer's 1,000 mls @ 80 mls/hr 07/28/20 00:39 07/28/20 01:01 Lr IV 08/27/20 00:38 80 mls/hr .[id number] RACHAEL Administration Potassium Chloride/Sodium Chloride 20 meq in 1,000 mls @ 80 mls/hr 07/28/20 04:45 07/28/20 05:22 Normal Saline W/20 Meq Kcl IV 08/27/20 04:44 80 mls/hr .[id number] RACHAEL Administration Levothyroxine Sodium 75 mcg 07/28/20 06:30 07/28/20 05:48 Levothyroxine Sodium 75 Mcg Tablet PO 08/27/20 06:29 75 mcg DAILYBB RACHAEL Administration Lisinopril 20 mg 07/28/20 09:00 07/28/20 07:21 Lisinopril 20 Mg Tab PO 08/27/20 08:59 20 mg QAM RACHAEL Administration Timolol Maleate 1 drops 07/28/20 00:39 07/28/20 07:21 Timolol Gfs 0.5% Oph Soln 74 Drops/5 Ml Btl OP 08/27/20 00:38 1 drops Q12 RACHAEL Administration Past Medical History Medical History Cervical dysplasia Hyperplastic colon polyp 08/2012 colonoscopy Exercise / Class Metabolic Activity III < 4 Walking/Shop/Light housework Past Family History Family History Mother Stroke Hypertension Aunt Breast cancer maternal aunt Father Hypertension Past Surgical History Surgical History S/P LEEP (loop electrosurgical excision procedure) Past Anesthesia History No Hx of Anesthesia Complications and No Family Hx of Anesthesia Complications History of PONV No Hx of PONV and No Hx of Motion Sickness Social History Smoking Status: Never smoker Hx Alcohol Use: Yes Alcohol type: wine alcohol intake frequency: 3 or more drinks per day Alcohol Intake Frequency Comment: 3-4 glasses wine/night Hx Substance Use: No Physical Exam Vital Signs Last Vital Signs Temp 36.9 C 07/28/20 07:10 Pulse 77 07/28/20 07:10 Resp 16 07/28/20 07:10 BP 173/77 H 07/28/20 07:10 Pulse Ox 97 07/28/20 07:10 Testing Laboratory Results 07/28/20 06:50 07/28/20 06:50 PT 10.5 Seconds (9.0-12.0) 07/28/20 06:50 INR 1.0 (0.9-1.1) 07/28/20 06:50 APTT 22.4 Seconds (21.0-31.0) 07/28/20 06:50 Urine Color Yellow 07/27/20 22:20 Urine Appearance Clear (Clear) 07/27/20 22:20 Urine pH 5.0 (4.5-7.5) 07/27/20 22:20 Ur Specific [place] 1.014 (1.000-1.030) 07/27/20 22:20 Urine Protein Negative (Negative) 07/27/20 22:20 Urine Glucose (UA) Negative (Negative) 07/27/20 22:20 Urine Ketones Negative (Negative) 07/27/20 22:20 Urine Nitrite Negative (Negative) 07/27/20 22:20 Ur Leukocyte Esterase Trace (Negative) H 07/27/20 22:20 Urine WBC (Auto) 1-5 /hpf (0-5) 07/27/20 22:20 Urine RBC (Auto) 0-4 /hpf (0-4) 07/27/20 22:20 U Hyaline Cast (Auto) 5-10 /lpf (0-5) H 07/27/20 22:20 U Epithel Cells (Auto) 20-30 /lpf (0-5) H 07/27/20 22:20 Urine Bacteria (Auto) Negative (Negative) 07/27/20 22:20 Blood Type A Positive 07/27/20 21:49 Antibody Screen NEGATIVE 07/27/20 21:49 Electrocardiogram Date: 07/27/20 Findings: + NSR @ (at 66;T wave abnl, consider Lateral ischemia) Chest X-Ray Date: 07/27/20 Findings: + NAD
[2020-07-28] MEDS ORDERED: BUPIVACAINE/EPINEPHRINE 0.5% MPF 1:200,000 30 ML VIAL ONE (11:30)
[2020-07-28] MEDS ORDERED: CLINDAMYCIN 600 MG/54 ML D5W IV ONE (11:46)
--- NOTE | 2020-07-28 11:50 | History & Physical Bridge Note ---
Date of Service July 28, 2020 History & Physical Bridge Note I have examined the patient, reviewed the History & Physical and in the interval since the performance of the History & Physical I have noted the following changes of clinical significance: no changes noted
[2020-07-28] MEDS ORDERED: fentaNYL citrate 100 MCG/2 ML VIAL ONE (11:54)
[2020-07-28] MEDS ORDERED: PROPOFOL IV EMULSION 10 MG/ML 20 ML VIAL IV ONE (11:54)
[2020-07-28] MEDS ORDERED: MIDAZOLAM HCL 1 MG/ML 2ML VIAL ONE (11:54)
[2020-07-28] MEDS ORDERED: LIDOCAINE HCL 2% 2 ML VIAL/AMP(20MG/ML) INFIL ONE (11:54)
[2020-07-28] MEDS ORDERED: BUPIVACAINE 0.5 % 5 MG/1 ML PF 10ML VIAL ONE (11:58)
[2020-07-28] MEDS ORDERED: ATROPINE SULFATE 0.1 MG/ML 10ML SYR IV PRN (13:25)
[2020-07-28] MEDS ORDERED: fentaNYL citrate 100 MCG/2 ML VIAL IV PRN (13:25)
[2020-07-28] MEDS ORDERED: PROMETHAZINE HCL 12.5 MG in SODIUM CHLORIDE 0.9% 50 ML IV PRN (13:25)
[2020-07-28] MEDS ORDERED: ONDANSETRON INJ 2 MG/ML 2 ML VIAL IV PRN (13:25)
[2020-07-28] MEDS ORDERED: ePHEDrine sulfate 50 MG/ML AMP IV PRN (13:25)
[2020-07-28] MEDS ORDERED: FLUMAZENIL 0.1 MG/1 ML 10 ML VIAL IV PRN (13:25)
--- NOTE | 2020-07-28 13:27 | Hospitalist Progress Note ---
Date of Service July 28, 2020 Assessment & Plan (1) Closed fracture of right hip: Femur x-ray on 07/27/2020 showed comminuted and slightly displaced intertrochanteric fracture of the proximal right femur. - Pain control - Plan for trochanteric nail today with Dr. Brown - Post-op care per surgical team (2) Fall: Status post mechanical fall on the snow and ice. Patient is typically very physically active. - PT/OT after surgery (3) Impaired fasting glucose: Glucose 109 upon admission. - Monitor on AM (4) Hypertension: BP today is 170/90. - Restart normal dose lisinopril tomorrow. - Restart HCTZ (5) Hypercholesteremia: - Continue simvastatin 20 mg every evening (6) Hypothyroidism: TSH was 1.4 in 05/2020. No signs/symptoms of hypo-/hyperthyroidism. - Continue levothyroxine sodium 75 mcg daily (7) DVT prophylaxis: SCDs - Defer heparin until after surgery Admission and Anticipated Discharge Date Admission Date: July 27, 2020 Subjective In minimal pain without moving, but "excruciating" pain with movement. Reports no fevers/chills, chest pain, shortness of breath, abdominal pain, nausea, or vomiting. Physical Exam Constitutional: WD/WN, vitals as above Eyes: EOM intact bilaterally; no conjunctival abnormality ENMT: external ear and nose normal, oropharynx normal Neck: trachea midline, no thyromegaly normal visual inspection Respiratory: normal respiratory effort, lungs clear to auscultation no respiratory distress Cardiovascular: RRR, no murmur, no edema Gastrointestinal (Abdomen): Inspection/Auscultation: abdomen normal to inspection; abdomen not distended Musculoskeletal: Extremities: + extremities abnormal to inspection (Right hip externally rotated.) Skin: no rashes, warm and dry Neurologic: moves all extremities and awake Psychiatric: Orientation: alert, oriented to person and cooperative Results & Data Results & Data ([facility]) Vital Signs (Past 12 Hours) Vital Signs Temp Pulse Pulse Resp BP Pulse Ox 07/28/20 11:41 37.3 C 83 20 168/89 H 97 07/28/20 07:10 36.9 C 77 16 173/77 H 97 PG Care Time/CCT Total # of Minutes Spent Total Time Spent with Patient: Total time spent is greater than 50% in coordination of care (as documented) at patient's floor/unit and/or counseling patient: Coding Level of Care Code 97399 Subseq Hosp Care Lvl 3 Diagnoses Closed fracture of right hip S72.001A Encounter type: initial encounter Fall W19.XXXA Encounter type: initial encounter Impaired fasting glucose R73.01 Hypertension I10 Hypercholesteremia E78.00 Hypothyroidism E03.9 DVT prophylaxis Z29.9 (1) Closed fracture of right hip Encounter type: initial encounter Qualified Code(s): S72.001A - Fracture of unspecified part of neck of right femur, initial encounter for closed fracture (2) Fall Encounter type: initial encounter Qualified Code(s): W19.XXXA - Unspecified fall, initial encounter
[2020-07-28] MEDS ORDERED: ONDANSETRON INJ 2 MG/ML 2 ML VIAL ONE (14:05)
--- NOTE | 2020-07-28 14:06 | Post Operative Brief Note ---
Immediate Post Op Note v1 Date of Surgery July 28, 2020 Pre & Post Diagnosis Operation Date: 07/28/20 08:50 Pre-Op Diagnosis: Closed Right Hip Fracture Post-Op Diagnosis: Closed Right Hip Fracture I identified the patient and participated in the time-out.: Yes Procedure Operation Date: 07/28/20 08:50 Actual Procedures p Right Hip Cephalomedullary Nail(Right) - Neo Brown DO Surgeon Neo Brown DO Fish Egg Packer none Estimated Blood Loss 175 Findings Consistent with Post-Op Diagnosis Fluids 1100 cc LR Specimens none Anesthesia Type Spinal MAC Complications none Disposition Disposition: Recovery Room Overlapping Procedure I was present for: the critical portions of procedure. I was immediately available: during the entire case. Back up surgeon: was not required during procedure.
--- NOTE | 2020-07-28 14:09 | Operative Report ---
Post Operative Report Pre & Post Diagnosis Operation Date: 07/28/20 08:50 Pre-Op Diagnosis: Closed Right Hip Fracture Post-Op Diagnosis: Closed Right Hip Fracture I identified the patient and participated in the time-out.: Yes Procedure Operation Date: 07/28/20 08:50 Actual Procedures p Right Hip Cephalomedullary Nail(Right) - Neo Brown DO Surgeon Neo Brown DO Roof Bolter Helper none Estimated Blood Loss 175 Findings Consistent with Post-Op Diagnosis Fluids 1100 cc LR Specimens none Anesthesia Type Spinal MAC Complications none Disposition Disposition: Recovery Room Indications The patient is a 74yo female with displaced right intertrochanteric hip fracture sustained after a fall from standing height. The patient was medically stabilized on 07/28/2020. I indicated the patient for right hip cephalomedullary nail. The patient was informed of the risks and benefits of surgery, which include but not limited to infection, bleeding, blood clots, damage to nerves, vessels, bone and soft tissue, dislocation, leg length discrepancy, malunion, nonunion, failure of the implants, need for additional surgery and . The patient chose to proceed with surgical intervention and informed consent was obtained. Description of Procedure Following induction of adequate spinal anesthesia, the patient was placed on the fracture table. The left leg was placed in the well leg shanks and the right leg in the traction leg shanks. All bony prominences were protected. Utilizing c-arm fluoroscopy closed reduction of the fracture was performed utilizing tension and internal/external rotation. Once satisfied with fracture reduction the right hip and thigh was prepped and draped in the usual sterile manner. A time out was performed, the patient identified, site genet confirmed and appropriate antibiotics given. The incision was made from the tip of the greater trochanter proximally. Subcutaneous tissue was sharply dissected to the tip of the greater trochanter, electrocautery used for hemostasis. Under fluoroscopic guidance the drill tipped guidewire was inserted at the tip of the greater trochanter and advanced into the intramedullary canal. Utilizing the intramedullary drill the guidewire was overdrilled with tissue protector attached. All instruments were removed. Next a long ball-tipped guidewire was passed through the proximal opening intramedullary beyond the fracture site to the proximal pole of the patella. Guidewire position was confirmed utilizing C- arm fluoroscopy. Guidewire was measured at this time to determine length of the nail at 380 mm. An x-ray approximately was performed to verify ruler was found to bone. Next utilizing flexible reamers sequential reaming was performed in .5mm increments, a final 12.5 mm reamer was passed the length of the canal. Care was taken to protect soft tissue proximally. A 11 by 380 mm long Synthes TFN was inserted and impacted into position and confirmed by c-arm fluoroscopy. Next the aiming arm was attached to the insertion handle. A incision was made and carried down through subcutaneous tissues to bone. The blade guide sleeve was inserted and secured down to bone. The guide wire was passed across the fracture site to the tip of the femoral head, position was confirmed in the AP and lateral planes utilizing c-arm fluoroscopy. The guide pin was measured and the 11.0mm drill bit passed over the guide pin to open lateral cortex followed by a 6.0mm/10.0mm cannulated reamer to a depth of 100 mm. Next the helical blade was inserted and locked proximally. Next position the C arm in anticipation for perfect stockbridge technique, care was taken to insure sterilility was maintained. Distally a stab incision was made in the skin and carried down to bone. Utilizing the radiolucent drill with a 4.0mm drill bit, both cortices were drilled through the proximal static hole. The nail was locked distally using a single 4.9mm x 38 mm locking bolt. Next utilizing perfect stockbridge technique a distal stab incision was made overlying the dynamic hole. Blunt dissection was carried down to bone. Utilizing the radiolucent drill with a 4.0 mm drill bit both cortices were drilled through the distal aspect of the dynamic hole. A single 4.9 mm x 42 mm locking bolt was placed through the dynamic hole. The aiming guide was removed at this time and final radiographs were obtained utilizing c-arm fluoroscopy to confirm overall position and fracture reduction. Incisions were irrigated with copious amounts of sterile saline solution. Subcutaneous tissue were injected utilizing half percent Marcaine with epi. Deep closure was performed using #1 Vicryl followed by 2-0 Vicryl for subcutaneous tissues and karuna in the skin. Sterile dressings were applied which included Xeroform, 4 x 4's and Tegaderm. The patient tolerated the procedure well and was transported to the PACU in stable condition. I attest to the content of the Intraoperative Record and any orders documented therein. Any exceptions are noted below.
--- NOTE | 2020-07-28 14:25 | Electrocardiogram Report ---
Test Reason : Blood Pressure : / mmHG Vent. Rate : 066 BPM Atrial Rate : 066 BPM P-R Int : 146 ms QRS Dur : 088 ms QT Int : 422 ms P-R-T Axes : 039 046 081 degrees QTc Int : 442 ms Normal sinus rhythm T wave abnormality, consider lateral ischemia Abnormal ECG No previous ECGs available Confirmed by Getachew Gilbert ([id number]) on 07/28/2020 2:25:40 PM Referred By: REFERRED SELF Confirmed By:Getachew Gilbert
--- NOTE | 2020-07-28 14:55 | XRay Report ---
XR femur RT 2V routine CLINICAL HISTORY: post op right hip troch nail. Postop right hip fracture. COMPARISON STUDY: Right hip 07/27/2020. FINDINGS: Status post internal fixation of a right femoral intertrochanteric fracture with an intrame dullary ady in interlocking femoral neck pin. The hardware is intact. The alignment is near-anatomic with mild displacement measuring up to 5 mm. No dislocation. The visualized pelvic bones are intact. Skin karuna are in place. No dislocation. IMPRESSION: Near-anatomic alignment status post internal fixation of a right femoral intertrochanter ic fracture. The hardware appears intact. ACT 112: Negative or not required by law. Electronically signed by: Clay Brooks M.D. 07/28/2020 2:54 PM
--- NOTE | 2020-07-28 14:57 | Fluoroscopy Report ---
FL hip RT 2-3V HISTORY: 70 years-old Female RT LONG TROCH NAIL STATUS post placement of an intratrochanteric nail w ith medullary ady COMPARISON: Right femur radiographs 07/27/2020 TECHNIQUE: 8 views of the right hip were obtained utilizing 205.3 seconds fluoroscopy time. FINDINGS: Status post placement of an intratrochanteric with medullary ady fixating the acute intertrochanteric fracture. There is improved alignment with persistent displacement of the greater and lesser trochan teric fracture fragment. Mild to moderate right hip osteoarthritis. No dislocation. Expected soft tis meghan swelling and deep tissue air. IMPRESSION: Fluoroscopic assistance as above. ACT 112: Negative or not required by law. The above report was generated using voice recognition software. It may contain grammatical, syntax o r spelling errors. Electronically signed by: Dimas Joe M.D. 07/28/2020 2:56 PM
--- NOTE | 2020-07-28 15:17 | Anesthesiology Progress Note ---
Date of Service July 28, 2020 Anesthesia Post Procedure Vital Signs Vital Signs: Temp Pulse Pulse Pulse Pulse Resp BP 07/28/20 15:00 36.8 C 83 14 07/28/20 14:50 73 14 07/28/20 14:40 86 20 07/28/20 14:30 70 13 07/28/20 14:20 72 14 07/28/20 14:11 36.5 C 76 15 07/28/20 11:41 37.3 C 83 20 07/28/20 07:10 36.9 C 77 16 07/28/20 00:48 36.6 C 71 18 07/28/20 00:00 65 15 107/51 L 07/27/20 23:30 64 15 103/45 L 07/27/20 23:00 66 14 112/57 L 07/27/20 22:30 64 14 130/63 07/27/20 22:00 73 12 137/90 07/27/20 21:59 66 20 07/27/20 21:08 36.5 C 73 20 159/80 H BP BP Pulse Ox 07/28/20 15:00 129/70 98 07/28/20 14:50 128/68 98 07/28/20 14:40 133/66 99 07/28/20 14:30 133/68 97 07/28/20 14:20 132/69 100 07/28/20 14:11 136/71 100 07/28/20 11:41 168/89 H 97 07/28/20 07:10 173/77 H 97 07/28/20 00:48 152/71 H 99 07/28/20 00:00 98 07/27/20 23:30 98 07/27/20 23:00 99 07/27/20 22:30 100 07/27/20 22:00 96 07/27/20 21:59 149/67 H 100 07/27/20 21:08 98 Pain Intensity Right Hip: Pain Intensity: 0 Transfer of Care Handoff Completed per policy Notes Mental Status: alert / awake / arousable Patient Amnestic to Procedure: Yes Nausea / Vomiting: adequately controlled Pain: adequately controlled Airway Patency, RR, SpO2: stable & adequate BP & HR: stable & adequate Hydration State: stable & adequate Neuraxial Anesthesia: was administered and sensory block is resolving Anesthetic Complications: no major complications apparent
[2020-07-28] MEDS: CLINDAMYCIN 600 MG in DEXTROSE 5% 50 ML IV SCH (22:02)
[2020-07-28] MEDS: SIMVASTATIN 20 MG TAB PO SCH (22:03)
[2020-07-28] MEDS: DOCUSATE SODIUM/SENNA 50/8.6MG TAB PO SCH (22:03)
[2020-07-29] MEDS: HYDROCODONE/ACETAMOPHEN 5/325MG TAB PO PRN ×4 (01:19→18:59)
[2020-07-29] MEDS: LACTATED RINGER'S 1,000 ML IV SCH (02:22)
[2020-07-29] MEDS: HYDROmorphone INJ 0.5 MG/0.5 ML SYR IV PRN (05:10)
[2020-07-29] MEDS: CLINDAMYCIN 600 MG in DEXTROSE 5% 50 ML IV SCH (05:13)
[2020-07-29] MEDS: LEVOTHYROXINE SODIUM 75 MCG TABLET PO SCH (05:52)
[2020-07-29 06:39] LABS: Basophils # (auto) 0.01 K/uL (0-0.2); Basophils % (auto) 0.2 %; Eosinophils # (auto) 0.01 K/uL (0-0.5); Eosinophils % (auto) 0.2 %; Hematocrit (blood only) 25.4 % (37-47); Lymphocytes # (auto) 1.05 K/uL (1.2-3.4); Lymphocytes % (auto) 22.4 %; Mean Corpuscular Hemoglobin 34.1 pg (25-34); Mean Corpuscular Hgb Conc 35.4 g/dL (32-36); Mean Corpuscular Volume 96.2 fL (80-100); Mean Platelet Volume 10.8 fL (7.4-10.4); Monocytes # (auto) 0.77 K/uL (0.11-0.59); Monocytes % (auto) 16.5 %; Neutrophils # (auto) 2.84 K/uL (1.4-6.5); Neutrophils % (auto) 60.7 %; Platelet Count 223 K/uL (130-400); RDW Coefficient of Variation 13.8 % (11.5-14.5); RDW Standard Deviation 48.5 fL (36.4-46.3); Red Blood Count 2.64 M/uL (4.2-5.4); White Blood Count 4.68 K/uL (4.8-10.8)
[2020-07-29 07:04] LABS: INR 0.9 (0.9-1.1); Partial Thromboplastin Ratio 0.9; Partial Thromboplastin Time 22.8 Seconds (21.0-31.0); Prothrombin Time 9.6 Seconds (9.0-12.0)
[2020-07-29 07:06] LABS: Albumin Level 2.4 gm/dl (3.4-5.0); BUN Creatinine Ratio 26.1 (10-20); Est GFR (African American) 99.3; Est GFR (Non-African American) 85.7; Magnesium 2.2 mg/dl (1.8-2.4); Potassium 4.5 mmol/L (3.5-5.1)
[2020-07-29 07:09] LABS: Phosphorus 3.2 mg/dl (2.5-4.9)
[2020-07-29] MEDS: NSS + 20MEQ KCL 20 MEQ/1,000 ML BAG IV SCH (07:46)
[2020-07-29] MEDS: TIMOLOL GFS 0.5% OPH SOLN 74 DROPS/5 ML BTL OP SCH ×2 (09:00→20:43)
[2020-07-29] MEDS: lisinopril 20 MG TAB PO SCH (09:00)
[2020-07-29] MEDS: ENOXAPARIN INJ 40 MG/0.4 ML SYR SQ SCH (09:00)
--- NOTE | 2020-07-29 10:33 | Orthopedic Progress Note ---
Date of Service July 29, 2020 Assessment & Plan (1) Closed fracture of right hip: s/p R hip long cephalomedullary nail POD#1 -clinda x 24 -DVT ppx: SCDs, TEDs, Lovenox daily -Toe touch WB RLE -PT/OT -PO XR demonstrates a well aligned well fixed implant, improved alignment of fractures. -am labs, as above, hgb 9.0 Admission and Anticipated Discharge Date Admission Date: July 27, 2020 Subjective Post Operative Progress Note The patient was seen postoperatively in PACU and this morning resting in bed, comfortable, denies complaints, pain well controlled, no acute issues. Denies F/C/N/V/SOB/CP. Review of Systems Review of Systems: All systems reviewed & are unremarkable except as noted in HPI & below Constitutional: as per Subjective / HPI Physical Exam Physical Exam: RLE NVSI +EHL/FHL/TA/GS SILT grossly, +2 DP pulse, compartments soft NT, dressing cdi. Constitutional: WD/WN, vitals as above Results & Data ([facility]) Vital Signs (Past 12 Hours) Vital Signs Temp Pulse Resp BP Pulse Ox 07/29/20 07:11 36.8 C 86 18 147/83 H 100 07/29/20 03:21 37.1 C 68 16 108/68 98 07/28/20 23:00 36.8 C 74 16 108/65 97 Laboratory Results 07/29/20 07/29/20 07/29/20 Range/Units 06:09 06:09 06:09 WBC 4.68 L (4.8-10.8) K/uL RBC 2.64 L (4.2-5.4) M/uL Hgb 9.0 L (12.0-16.0) g/dL Hct 25.4 L (37-47) % MCV 96.2 (80-100) fL MCH 34.1 H (25-34) pg MCHC 35.4 (32-36) g/dL RDW Std Deviation 48.5 H (36.4-46.3) fL RDW Coeff of Carolyn 13.8 (11.5-14.5) % Plt Count 223 (130-400) K/uL MPV 10.8 H (7.4-10.4) fL Immature Gran % (Auto) 0.0 % Neut % (Auto) 60.7 % Lymph % (Auto) 22.4 % [place] % (Auto) 16.5 % Eos % (Auto) 0.2 % Baso % (Auto) 0.2 % Neut # (Auto) 2.84 (1.4-6.5) K/uL Lymph # (Auto) 1.05 L (1.2-3.4) K/uL [place] # (Auto) 0.77 H (0.11-0.59) K/uL Eos # (Auto) 0.01 (0-0.5) K/uL Baso # (Auto) 0.01 (0-0.2) K/uL Immature Gran # (Auto) 0.00 (0.00-0.02) K/uL PT 9.6 (9.0-12.0) Seconds INR 0.9 (0.9-1.1) APTT 22.8 (21.0-31.0) Seconds PTT Ratio 0.9 Sodium 137 (136-145) mmol/L Potassium 4.5 (3.5-5.1) mmol/L Chloride 104 (98-107) mmol/L Carbon Dioxide 28 (21-32) mmol/L Anion Gap 5.0 (3-11) BUN 19 H (7-18) mg/dl Creatinine 0.71 (0.6-1.2) mg/dl Est Cr Clr Drug Dosing 68.0 ml/min Est GFR ( Amer) 99.3 Est GFR (Non-Af Amer) 85.7 BUN/Creatinine Ratio 26.1 H (10-20) Glucose 125 H (70-99) mg/dl Calcium 8.0 L (8.5-10.1) mg/dl Phosphorus 3.2 (2.5-4.9) mg/dl Magnesium 2.2 (1.8-2.4) mg/dl Albumin 2.4 L (3.4-5.0) gm/dl 25-OH Vitamin D Total (30-100) ng/ml 07/28/20 Range/Units 10:27 WBC (4.8-10.8) K/uL RBC (4.2-5.4) M/uL Hgb (12.0-16.0) g/dL Hct (37-47) % MCV (80-100) fL MCH (25-34) pg MCHC (32-36) g/dL RDW Std Deviation (36.4-46.3) fL RDW Coeff of Carolyn (11.5-14.5) % Plt Count (130-400) K/uL MPV (7.4-10.4) fL Immature Gran % (Auto) % Neut % (Auto) % Lymph % (Auto) % [place] % (Auto) % Eos % (Auto) % Baso % (Auto) % Neut # (Auto) (1.4-6.5) K/uL Lymph # (Auto) (1.2-3.4) K/uL [place] # (Auto) (0.11-0.59) K/uL Eos # (Auto) (0-0.5) K/uL Baso # (Auto) (0-0.2) K/uL Immature Gran # (Auto) (0.00-0.02) K/uL PT (9.0-12.0) Seconds INR (0.9-1.1) APTT (21.0-31.0) Seconds PTT Ratio Sodium (136-145) mmol/L Potassium (3.5-5.1) mmol/L Chloride (98-107) mmol/L Carbon Dioxide (21-32) mmol/L Anion Gap (3-11) BUN (7-18) mg/dl Creatinine (0.6-1.2) mg/dl Est Cr Clr Drug Dosing ml/min Est GFR ( Amer) Est GFR (Non-Af Amer) BUN/Creatinine Ratio (10-20) Glucose (70-99) mg/dl Calcium (8.5-10.1) mg/dl Phosphorus (2.5-4.9) mg/dl Magnesium (1.8-2.4) mg/dl Albumin (3.4-5.0) gm/dl 25-OH Vitamin D Total 31.9 (30-100) ng/ml (1) Closed fracture of right hip Encounter type: initial encounter Qualified Code(s): S72.001A - Fracture of unspecified part of neck of right femur, initial encounter for closed fracture
[2020-07-29] MEDS: IRON SUCROSE 300 MG in SODIUM CHLORIDE 0.9% 250 ML IV SCH (12:10)
--- NOTE | 2020-07-29 12:17 | Hospitalist Progress Note ---
Date of Service July 29, 2020 Assessment & Plan (1) Closed fracture of right hip: Femur x-ray on 07/27/2020 showed comminuted and slightly displaced intertrochanteric fracture of the proximal right femur. - S/p right hip long cephalomedullary nail with Dr. Brown on 07/28 - Post-op care per surgical team * Lovenox daily * Toe touch WB RLE - PT/OT - Acute, expected, post-operative blood loss anemia -> IV iron x 2 doses. (2) Fall: Status post mechanical fall on the snow and ice. Patient is typically very physically active. - PT/OT after surgery (3) Impaired fasting glucose: Glucose 109 upon admission. - Monitor on AM (4) Hypertension: BP today is 100/50. - Continue lisinopril at 1/2 dose (20 mg) compared to home 40 mg. - Hold HCTZ for now. (5) Hypercholesteremia: - Continue simvastatin 20 mg every evening (6) Hypothyroidism: TSH was 1.4 in 05/2020. No signs/symptoms of hypo-/hyperthyroidism. - Continue levothyroxine sodium 75 mcg daily (7) DVT prophylaxis: Lovenox 40 mg SQ daily per surgical team Admission and Anticipated Discharge Date Admission Date: July 27, 2020 Subjective Doing well today. Less right hip pain and less so when she is able to move properly with PT. Reports no fevers/chills, chest pain, shortness of breath, abdominal pain, nausea, or vomiting. Physical Exam Constitutional: WD/WN, vitals as above Eyes: EOM intact bilaterally; no conjunctival abnormality ENMT: external ear and nose normal, oropharynx normal Neck: trachea midline, no thyromegaly normal visual inspection Respiratory: normal respiratory effort, lungs clear to auscultation no respiratory distress Cardiovascular: RRR, no murmur, no edema Gastrointestinal (Abdomen): Inspection/Auscultation: abdomen normal to inspection; abdomen not distended Musculoskeletal: Extremities: + extremities abnormal to inspection (Surgical dressing on right lateral thigh) Skin: no rashes, warm and dry Neurologic: moves all extremities and awake Psychiatric: Orientation: alert, oriented to person and cooperative Results & Data Results & Data ([facility]) Vital Signs (Past 12 Hours) Vital Signs Temp Pulse Resp BP Pulse Ox 07/29/20 07:11 36.8 C 86 18 147/83 H 100 07/29/20 03:21 37.1 C 68 16 108/68 98 PG Care Time/CCT Total # of Minutes Spent Total Time Spent with Patient: Total time spent is greater than 50% in coordination of care (as documented) at patient's floor/unit and/or counseling patient: Coding Level of Care Code 31141 Subseq Hosp Care Lvl 3 Diagnoses Closed fracture of right hip S72.001A Encounter type: initial encounter Fall W19.XXXA Encounter type: initial encounter Impaired fasting glucose R73.01 Hypertension I10 Hypercholesteremia E78.00 Hypothyroidism E03.9 DVT prophylaxis Z29.9 (1) Closed fracture of right hip Encounter type: initial encounter Qualified Code(s): S72.001A - Fracture of unspecified part of neck of right femur, initial encounter for closed fracture (2) Fall Encounter type: initial encounter Qualified Code(s): W19.XXXA - Unspecified fall, initial encounter
[2020-07-29] MEDS: DOCUSATE SODIUM/SENNA 50/8.6MG TAB PO SCH (20:43)
[2020-07-29] MEDS: SIMVASTATIN 20 MG TAB PO SCH (20:43)
[2020-07-30] MEDS: HYDROCODONE/ACETAMOPHEN 5/325MG TAB PO PRN ×3 (03:47→17:00)
[2020-07-30] MEDS: LEVOTHYROXINE SODIUM 75 MCG TABLET PO SCH (05:48)
[2020-07-30 07:09] LABS: Basophils # (auto) 0.02 K/uL (0-0.2); Basophils % (auto) 0.4 %; Eosinophils # (auto) 0.01 K/uL (0-0.5); Eosinophils % (auto) 0.2 %; Hemoglobin 8.2 g/dL (12.0-16.0); Immature Granulocytes # (auto) 0.02 K/uL (0.00-0.02); Immature Granulocytes % (auto) 0.4 %; Lymphocytes # (auto) 0.75 K/uL (1.2-3.4); Lymphocytes % (auto) 14.2 %; Mean Corpuscular Hemoglobin 32.8 pg (25-34); Mean Corpuscular Hgb Conc 34.2 g/dL (32-36); Mean Platelet Volume 11.2 fL (7.4-10.4); Monocytes # (auto) 0.65 K/uL (0.11-0.59); Monocytes % (auto) 12.3 %; Neutrophils # (auto) 3.83 K/uL (1.4-6.5); Neutrophils % (auto) 72.5 %; Platelet Count 206 K/uL (130-400); RDW Coefficient of Variation 13.7 % (11.5-14.5); White Blood Count 5.28 K/uL (4.8-10.8)
[2020-07-30 07:14] LABS: INR 0.9 (0.9-1.1); Partial Thromboplastin Ratio 0.9; Partial Thromboplastin Time 24.6 Seconds (21.0-31.0); Prothrombin Time 9.5 Seconds (9.0-12.0)
[2020-07-30 07:43] LABS: Albumin Level 2.2 gm/dl (3.4-5.0); BUN Creatinine Ratio 19.1 (10-20); Calcium 7.8 mg/dl (8.5-10.1); Creatinine Clr Calc Pharmacy 83.3 ml/min; Est GFR (African American) 107.5; Est GFR (Non-African American) 92.7; Magnesium 2.5 mg/dl (1.8-2.4); Phosphorus 2.5 mg/dl (2.5-4.9); Potassium 3.9 mmol/L (3.5-5.1)
[2020-07-30] MEDS: lisinopril 20 MG TAB PO SCH (09:24)
[2020-07-30] MEDS: ENOXAPARIN INJ 40 MG/0.4 ML SYR SQ SCH (09:25)
[2020-07-30] MEDS: TIMOLOL GFS 0.5% OPH SOLN 74 DROPS/5 ML BTL OP SCH ×2 (09:25→20:56)
[2020-07-30] MEDS: IRON SUCROSE 300 MG in SODIUM CHLORIDE 0.9% 250 ML IV SCH (09:31)
--- NOTE | 2020-07-30 09:45 | Orthopedic Progress Note ---
Date of Service July 30, 2020 Assessment & Plan (1) Closed fracture of right hip: s/p R hip long cephalomedullary nail POD#2 -clinda x 24 then dc -DVT ppx: SCDs, TEDs, Lovenox daily -Toe touch WB RLE -PT/OT -am labs, as above, hgb 8.2. Asymptomatic currently. DC plans - Trying for transfer [facility] vs SNF. Ok per Ortho for transfer when arranged. Admission and Anticipated Discharge Date Admission Date: July 27, 2020 Supervising Physician Co-Signing Physician Notes Patient seen and examined agree with above assessment and plan RLE NVSI +EHL/FHL/TA/GS SILT grossly, +2 DP pulse, compartments soft NT, dressing cdi. s/p R hip long cephalomedullary nail POD#2 TTWB RLE PT/OT Lovenox daily am labs as above, hgb 8.2 Subjective POD 2 Pt sitting up in bed. Having pain with getting OOB in the operative hip. Pain controlled at rest. No other complaints at this time. Review of Systems Review of Systems: All systems reviewed & are unremarkable except as noted in HPI & below Constitutional: as per Subjective / HPI Physical Exam Physical Exam: Dressings C/D/I. Thigh with swelling but soft. Calves soft, NT, NV intact, Toes mobile. Results & Data ([facility]) Vital Signs (Past 12 Hours) Vital Signs Temp Pulse Pulse Resp BP BP Pulse Ox 07/30/20 07:11 37.2 C 81 18 124/70 96 07/30/20 06:06 07/30/20 00:20 07/29/20 23:42 36.9 C 81 16 128/76 99 Pulse Ox 07/30/20 07:11 07/30/20 06:06 99 07/30/20 00:20 99 07/29/20 23:42 Laboratory Results Laboratory Results WBC 5.28 K/uL (4.8-10.8) 07/30/20 06:45 RBC 2.50 M/uL (4.2-5.4) L 07/30/20 06:45 Hgb 8.2 g/dL (12.0-16.0) L 07/30/20 06:45 Hct 24.0 % (37-47) L 07/30/20 06:45 MCV 96.0 fL (80-100) 07/30/20 06:45 MCH 32.8 pg (25-34) 07/30/20 06:45 MCHC 34.2 g/dL (32-36) 07/30/20 06:45 RDW Std Deviation 48.0 fL (36.4-46.3) H 07/30/20 06:45 RDW Coeff of Carolyn 13.7 % (11.5-14.5) 07/30/20 06:45 Plt Count 206 K/uL (130-400) 07/30/20 06:45 MPV 11.2 fL (7.4-10.4) H 07/30/20 06:45 Immature Gran % (Auto) 0.4 % 07/30/20 06:45 Neut % (Auto) 72.5 % 07/30/20 06:45 Lymph % (Auto) 14.2 % 07/30/20 06:45 [place] % (Auto) 12.3 % 07/30/20 06:45 Eos % (Auto) 0.2 % 07/30/20 06:45 Baso % (Auto) 0.4 % 07/30/20 06:45 Neut # (Auto) 3.83 K/uL (1.4-6.5) 07/30/20 06:45 Lymph # (Auto) 0.75 K/uL (1.2-3.4) L 07/30/20 06:45 [place] # (Auto) 0.65 K/uL (0.11-0.59) H 07/30/20 06:45 Eos # (Auto) 0.01 K/uL (0-0.5) 07/30/20 06:45 Baso # (Auto) 0.02 K/uL (0-0.2) 07/30/20 06:45 Immature Gran # (Auto) 0.02 K/uL (0.00-0.02) 07/30/20 06:45 PT 9.5 Seconds (9.0-12.0) 07/30/20 06:45 INR 0.9 (0.9-1.1) 07/30/20 06:45 APTT 24.6 Seconds (21.0-31.0) 07/30/20 06:45 PTT Ratio 0.9 07/30/20 06:45 Sodium 141 mmol/L (136-145) 07/30/20 06:45 Potassium 3.9 mmol/L (3.5-5.1) 07/30/20 06:45 Chloride 110 mmol/L (98-107) H 07/30/20 06:45 Carbon Dioxide 27 mmol/L (21-32) 07/30/20 06:45 Anion Gap 4.0 (3-11) 07/30/20 06:45 BUN 11 mg/dl (7-18) 07/30/20 06:45 Creatinine 0.58 mg/dl (0.6-1.2) L 07/30/20 06:45 Est Cr Clr Drug Dosing 83.3 ml/min 07/30/20 06:45 Est GFR ( Amer) 107.5 07/30/20 06:45 Est GFR (Non-Af Amer) 92.7 07/30/20 06:45 BUN/Creatinine Ratio 19.1 (10-20) 07/30/20 06:45 Glucose 108 mg/dl (70-99) H 07/30/20 06:45 Calcium 7.8 mg/dl (8.5-10.1) L 07/30/20 06:45 Phosphorus 2.5 mg/dl (2.5-4.9) 07/30/20 06:45 Magnesium 2.5 mg/dl (1.8-2.4) H 07/30/20 06:45 Troponin I < 0.015 ng/ml (0-0.045) 07/28/20 06:50 Albumin 2.2 gm/dl (3.4-5.0) L 07/30/20 06:45 25-OH Vitamin D Total 31.9 ng/ml (30-100) 07/28/20 10:27 Urine Color Yellow 07/27/20 22:20 Urine Appearance Clear (Clear) 07/27/20 22:20 Urine pH 5.0 (4.5-7.5) 07/27/20 22:20 Ur Specific [place] 1.014 (1.000-1.030) 07/27/20 22:20 Urine Protein Negative (Negative) 07/27/20 22:20 Urine Glucose (UA) Negative (Negative) 07/27/20 22:20 Urine Ketones Negative (Negative) 07/27/20 22:20 Urine Blood Negative (Negative) 07/27/20 22:20 Urine Nitrite Negative (Negative) 07/27/20 22:20 Urine Bilirubin Negative (Negative) 07/27/20 22:20 Urine Urobilinogen Negative (Negative) 07/27/20 22:20 Ur Leukocyte Esterase Trace (Negative) H 07/27/20 22:20 Urine WBC (Auto) 1-5 /hpf (0-5) 07/27/20 22:20 Urine RBC (Auto) 0-4 /hpf (0-4) 07/27/20 22:20 U Hyaline Cast (Auto) 5-10 /lpf (0-5) H 07/27/20 22:20 U Epithel Cells (Auto) 20-30 /lpf (0-5) H 07/27/20 22:20 Urine Bacteria (Auto) Negative (Negative) 07/27/20 22:20 COVID-19 Eval Order Covid19 IDNow [facility] 07/27/20 22:05 SARS-CoV-2, RNA, NAAT NEGATIVE (NEGATIVE) 07/27/20 22:05 Blood Type A Positive 07/27/20 21:49 Antibody Screen NEGATIVE 07/27/20 21:49 (1) Closed fracture of right hip Encounter type: initial encounter Qualified Code(s): S72.001A - Fracture of unspecified part of neck of right femur, initial encounter for closed fracture
--- NOTE | 2020-07-30 16:06 | Hospitalist Progress Note ---
Date of Service July 30, 2020 Assessment & Plan (1) Closed fracture of right hip: Femur x-ray on 07/27/2020 showed comminuted and slightly displaced intertrochanteric fracture of the proximal right femur. - S/p right hip long cephalomedullary nail with Dr. Brown on 07/28 - Post-op care per surgical team * Lovenox daily * Toe touch WB RLE - PT/OT - Acute, expected, post-operative blood loss anemia -> IV iron x 2 doses. Hgb 8.2 today. (2) Fall: Status post mechanical fall on the snow and ice. Patient is typically very physically active. - PT/OT after surgery (3) Impaired fasting glucose: Glucose 109 upon admission. - Monitor on AM (4) Hypertension: BP today is 115/60. - Continue lisinopril at 1/2 dose (20 mg) compared to home 40 mg. - Hold HCTZ for now. (5) Hypercholesteremia: - Continue simvastatin 20 mg every evening (6) Hypothyroidism: TSH was 1.4 in 05/2020. No signs/symptoms of hypo-/hyperthyroidism. - Continue levothyroxine sodium 75 mcg daily (7) DVT prophylaxis: Lovenox 40 mg SQ daily per surgical team Admission and Anticipated Discharge Date Admission Date: July 27, 2020 Subjective Feeling a bit lightheaded today. Feeling discouraged about [facility] denial from insurance. Reports no fevers/chills, chest pain, shortness of breath, abdominal pain, nausea, or vomiting. Physical Exam Constitutional: WD/WN, vitals as above Eyes: EOM intact bilaterally; no conjunctival abnormality ENMT: external ear and nose normal, oropharynx normal Neck: trachea midline, no thyromegaly normal visual inspection Respiratory: normal respiratory effort, lungs clear to auscultation no respiratory distress Cardiovascular: RRR, no murmur, no edema Gastrointestinal (Abdomen): Inspection/Auscultation: abdomen normal to inspection; abdomen not distended Musculoskeletal: Extremities: + extremities abnormal to inspection (Surgical dressing on right lateral thigh) Skin: no rashes, warm and dry Neurologic: moves all extremities and awake Psychiatric: Orientation: alert, oriented to person and cooperative Results & Data Results & Data ([facility]) Vital Signs (Past 12 Hours) Vital Signs Temp Pulse Pulse Resp BP Pulse Ox Pulse Ox 02/04/21 15:20 36.9 C 87 16 116/61 96 07/30/20 07:11 37.2 C 81 18 124/70 96 07/30/20 06:06 99 PG Care Time/CCT Total # of Minutes Spent Total Time Spent with Patient: Total time spent is greater than 50% in coordination of care (as documented) at patient's floor/unit and/or counseling patient: Coding Level of Care Code 89704 Subseq Hosp Care Lvl 2 Diagnoses Closed fracture of right hip S72.001A Encounter type: initial encounter Fall W19.XXXA Encounter type: initial encounter Impaired fasting glucose R73.01 Hypertension I10 Hypercholesteremia E78.00 Hypothyroidism E03.9 DVT prophylaxis Z29.9 (1) Closed fracture of right hip Encounter type: initial encounter Qualified Code(s): S72.001A - Fracture of unspecified part of neck of right femur, initial encounter for closed fracture (2) Fall Encounter type: initial encounter Qualified Code(s): W19.XXXA - Unspecified fall, initial encounter
[2020-07-30] MEDS: SIMVASTATIN 20 MG TAB PO SCH (20:56)
[2020-07-30] MEDS: DOCUSATE SODIUM/SENNA 50/8.6MG TAB PO SCH (20:56)
[2020-07-31] MEDS: HYDROCODONE/ACETAMOPHEN 5/325MG TAB PO PRN ×3 (00:01→15:48)
[2020-07-31] MEDS: LEVOTHYROXINE SODIUM 75 MCG TABLET PO SCH (05:33)
[2020-07-31 06:59] LABS: Basophils # (auto) 0.03 K/uL (0-0.2); Basophils % (auto) 0.5 %; Eosinophils # (auto) 0.08 K/uL (0-0.5); Eosinophils % (auto) 1.3 %; Hematocrit (blood only) 24.9 % (37-47); Hemoglobin 8.4 g/dL (12.0-16.0); Immature Granulocytes # (auto) 0.03 K/uL (0.00-0.02); Immature Granulocytes % (auto) 0.5 %; Lymphocytes # (auto) 1.21 K/uL (1.2-3.4); Mean Corpuscular Hemoglobin 32.6 pg (25-34); Mean Corpuscular Hgb Conc 33.7 g/dL (32-36); Mean Corpuscular Volume 96.5 fL (80-100); Monocytes # (auto) 0.64 K/uL (0.11-0.59); Neutrophils # (auto) 4.38 K/uL (1.4-6.5); Neutrophils % (auto) 68.7 %; Nucleated RBC # (auto) 0.03 K/uL (0-0); Nucleated RBC % (auto) 0.4 %; Platelet Count 252 K/uL (130-400); RDW Coefficient of Variation 13.9 % (11.5-14.5); RDW Standard Deviation 48.5 fL (36.4-46.3); Red Blood Count 2.58 M/uL (4.2-5.4); White Blood Count 6.37 K/uL (4.8-10.8)
[2020-07-31 07:23] LABS: BUN Creatinine Ratio 14.2 (10-20); Calcium 8.5 mg/dl (8.5-10.1); Est GFR (Non-African American) 87.2; Potassium 3.8 mmol/L (3.5-5.1)
[2020-07-31] MEDS: lisinopril 20 MG TAB PO SCH (08:24)
[2020-07-31] MEDS: ENOXAPARIN INJ 40 MG/0.4 ML SYR SQ SCH (08:24)
[2020-07-31] MEDS: TIMOLOL GFS 0.5% OPH SOLN 74 DROPS/5 ML BTL OP SCH (08:24)
--- NOTE | 2020-07-31 10:30 | Orthopedic Progress Note ---
Date of Service July 31, 2020 Assessment & Plan (1) Closed fracture of right hip: s/p R hip long cephalomedullary nail POD#3 -clinda x 24 then dc -DVT ppx: SCDs, TEDs, Lovenox daily -Toe touch WB RLE -PT/OT -am labs, as above, hgb 8.4. Asymptomatic currently. Orthopedics will sign off, please call with questions. Admission and Anticipated Discharge Date Admission Date: July 27, 2020 Subjective Post Operative Progress Note Patient seen sitting up in bed, comfortable, denies complaints, pain well controlled, no acute issues. Denies F/C/N/V/SOB/CP. Review of Systems Review of Systems: All systems reviewed & are unremarkable except as noted in HPI & below Constitutional: as per Subjective / HPI Physical Exam Physical Exam: RLE NVSI +EHL/FHL/TA/GS SILT grossly, +2 DP pulse, compartments soft NT, dressing cdi. Constitutional: WD/WN, vitals as above Results & Data ([facility]) Vital Signs (Past 12 Hours) Vital Signs Temp Pulse Resp BP Pulse Ox 07/31/20 07:10 36.7 C 50 L 16 151/69 H 96 07/30/20 22:56 37.2 C 77 16 127/64 96 Laboratory Results 07/31/20 07/31/20 Range/Units 06:31 06:31 WBC 6.37 (4.8-10.8) K/uL RBC 2.58 L (4.2-5.4) M/uL Hgb 8.4 L (12.0-16.0) g/dL Hct 24.9 L (37-47) % MCV 96.5 (80-100) fL MCH 32.6 (25-34) pg MCHC 33.7 (32-36) g/dL RDW Std Deviation 48.5 H (36.4-46.3) fL RDW Coeff of Carolyn 13.9 (11.5-14.5) % Plt Count 252 (130-400) K/uL MPV 11.0 H (7.4-10.4) fL Immature Gran % (Auto) 0.5 % Neut % (Auto) 68.7 % Lymph % (Auto) 19.0 % [place] % (Auto) 10.0 % Eos % (Auto) 1.3 % Baso % (Auto) 0.5 % Neut # (Auto) 4.38 (1.4-6.5) K/uL Lymph # (Auto) 1.21 (1.2-3.4) K/uL [place] # (Auto) 0.64 H (0.11-0.59) K/uL Eos # (Auto) 0.08 (0-0.5) K/uL Baso # (Auto) 0.03 (0-0.2) K/uL Immature Gran # (Auto) 0.03 H (0.00-0.02) K/uL Absolute Nucleated RBC 0.03 H (0-0) K/uL Nucleated RBC % (auto) 0.4 % Sodium 141 (136-145) mmol/L Potassium 3.8 (3.5-5.1) mmol/L Chloride 108 H (98-107) mmol/L Carbon Dioxide 27 (21-32) mmol/L Anion Gap 6.0 (3-11) BUN 10 (7-18) mg/dl Creatinine 0.70 (0.6-1.2) mg/dl Est Cr Clr Drug Dosing 69.0 ml/min Est GFR ( Amer) 101.0 Est GFR (Non-Af Amer) 87.2 BUN/Creatinine Ratio 14.2 (10-20) Glucose 105 H (70-99) mg/dl Calcium 8.5 (8.5-10.1) mg/dl (1) Closed fracture of right hip Encounter type: initial encounter Qualified Code(s): S72.001A - Fracture of unspecified part of neck of right femur, initial encounter for closed fracture
--- NOTE | 2020-07-31 17:06 | Discharge Summary ---
Date of Service July 31, 2020 Admission HPI Per Admitting Provider The patient is a 70-year-old female with a past medical history including impaired fasting glucose, hypothyroidism, hypertension, hypercholesterolemia and glaucoma. She was walking outside on the snow after visiting with a friend, slipped and fell, landed on her right hip, and sustained immediate pain. X-rays in the emergency department showed a closed right hip fracture. Principal Diagnosis Right hip fracture Discharge Exam Constitutional WD/WN, vitals as above Eyes EOM intact bilaterally; no conjunctival abnormality ENMT external ear and nose normal, oropharynx normal Neck trachea midline, no thyromegaly normal visual inspection Respiratory normal respiratory effort, lungs clear to auscultation no respiratory distress Cardiovascular RRR, no murmur, no edema Gastrointestinal (Abdomen) Inspection/Auscultation: abdomen normal to inspection; abdomen not distended Musculoskeletal Extremities: + extremities abnormal to inspection (Surgical dressing on right lateral thigh) Skin no rashes, warm and dry Neurologic moves all extremities and awake Psychiatric Orientation: alert, oriented to person and cooperative Discharge Data Allergies Allergy/AdvReac Type Severity Reaction Status Date / Time amoxicillin Allergy Mild Rash Verified 07/27/20 21:15 Consultations 07/27/20 23:10 ED Decision to Admit Stat 07/28/20 00:39 Consult Case Management - Discharge Planning Routine Consult Case Management - Discharge Planning Routine 07/28/20 09:52 Consult Orthopedic Surgery Routine 07/28/20 15:23 Consult Case Management - Discharge Planning Routine Procedures Performed Operation Date: 07/28/20 08:50 Actual Procedures p Right Hip Cephalomedullary Nail(Right) - Neo Brown, Ordered Studies 07/28/20 14:00 FL fluoroscopy <1hr Routine FL hip RT 2-3V Routine Hospital Course (1) Closed fracture of right hip: Femur x-ray on 07/27/2020 showed comminuted and slightly displaced intertrochanteric fracture of the proximal right femur. - S/p right hip long cephalomedullary nail with Dr. Brown on 07/28 - Post-op care per surgical team * Lovenox daily * Toe touch WB RLE - PT/OT - Acute, expected, post-operative blood loss anemia -> IV iron x 2 doses. Hgb 8.2 today. (2) Fall: Status post mechanical fall on the snow and ice. Patient is typically very physically active. - PT/OT after surgery -> Plan for home. (3) Impaired fasting glucose: Glucose 109 upon admission. - Can follow up with PCP. (4) Hypertension: BP today is 150/70. - Was on lisinopril at 1/2 dose (20 mg) compared to home 40 mg. - Return to home meds as her BP is returning to normal. (5) Hypercholesteremia: - Continue simvastatin 20 mg every evening (6) Hypothyroidism: TSH was 1.4 in 05/2020. No signs/symptoms of hypo-/hyperthyroidism. - Continue levothyroxine sodium 75 mcg daily (7) DVT prophylaxis: Lovenox 40 mg SQ daily per surgical team x 4 weeks. Total Time Total Time Spent Total Time Spent (In Minutes): 35 Discharge Plan Discharge Items Patient Disposition: Home - Home Health Services Reason For Visit: CLOSED RIGHT HIP FRACTURE Discharge Diagnosis: Right hip fracture Activity: Resume your previous activity Weightbearing: Right toe touch Weightbearing Comment: With walker Non-emergency contact: Surgeon Call non-emergency contact if: your symptoms worsen Follow-up/Referrals: Alexy Giraldo III, MD [Primary Care Provider] - Neo Brown DO [Physician] - (follow up for wound check in 10-14 days.) Lloyd-Shanique Burkett CRNP [Nurse Practitioner] - (Osteoporosis visit/work up in 6 weeks from surgery date.) Diet: Heart Healthy Cynthia Attending Provider Instructions: Addtl Stockkeeper Provider Instructions: [facility] DISCHARGE INSTRUCTIONS: HIP FRACTURE SELF CARE INSTRUCTIONS: A. You are to ambulate with a walker or crutches for approximately 6 weeks. B. You are TOE TOUCH WEIGHT BEARING on your operative lower extremity for at least 6 weeks. C. Wear low heeled shoes with non-slip soles D. Be sure that your floors are free of things that could trip you throw rugs, electrical cords, and small objects. Avoid wet and waxed floors, especially with crutches/walker/cane. E. Try to walk several times a day with rest periods between. F. You may shower 48 hours after surgery and get the incision area wet, but DO NOT soak or submerge incision area in water. (No baths, swimming pools, hot tubs) G. Change dressing daily for the first week, then can change every other day until seen in office. H. Do NOT apply soap or any ointment/lotions directly over incision. I. You may use ice as needed to operative site. SPECIAL CARE INSTRUCTIONS: VERY IMPORTANT TO READ AND REVIEW A. You may be at risk for phlebitis or blood clots. a. Wear surgical stockings (YARELI hose) for 2 weeks after surgery to improve circulation and reduce swelling. b. Take LOVENOX 40mg SQ daily for 4 weeks or as directed. This is your blood thinner. B. There are a few signs you need to watch for after you are home. Call [facility] at [phone] if you experience any of the following: a. If you have a temperature of 101 degrees or higher. b. Sudden increase in pain in your hip not relieved by rest or pain medication. c. Any fluid or drainage from the incision; redness of the incision. d. Shortness of breath or chest pain. C. Call your physician if: a. Temperature is greater than 101 degrees (F). b. Pain is not relieved by prescribed pain medications. c. Increase drainage or redness from incision. d. Unanswered questions or concerns. D. Pain Medication: a. You will be prescribed pain medication upon discharge that should last till your first post-operative appointment. b. If you experience nausea and/or skin rash, discontin ue this medication and contact our office for an alternative medication. c. Caution- narcotic pain medication can cause constipation. FOLLOW UP VISIT: Please call [facility] at [phone] to schedule a follow up appointment 10-14 days from the date of your surgery date. Pending Studies at Discharge: No Stand-Alone Forms: My [facility], Smoking Cessation Medications and DC Order Prescriptions: New hydrocodone-acetaminophen 5-325 mg tablet 1 tab PO Q6H PRN (Reason: pain) Qty: 20 RF: 0 enoxaparin 40 mg/0.4 mL Syringe 40 mg subcut QAM 30 Days Qty: 12 RF: 0 Continued lisinopril 40 mg tablet 40 mg PO DAILY Qty: 90 RF: 3 hydrochlorothiazide 25 mg tablet 25 mg PO DAILY Qty: 90 RF: 3 simvastatin 20 mg tablet 20 mg PO QPM Qty: 90 RF: 3 levothyroxine 75 mcg tablet 75 mcg PO DAILY Qty: 90 RF: 3 aspirin 81 mg tablet,chewable 81 mg PO DAILY RF: 0 timolol maleate 0.25 % drops 1 drops OP Q12H RF: 0 [id number]-lclh-[id number]-ovrq-bor [id number] zc-qjdm-dq-mg tablet 1 tab PO DAILY RF: 0 ascorbic acid (vitamin C) 500 mg capsule 500 mg PO DAILY RF: 0 multivitamin [Daily Multi-Vitamin] tablet 1 tab PO DAILY RF: 0 turmeric root extract 500 mg capsule 500 mg PO BID RF: 0 diclofenac sodium 1 % gel 2 gm TOP QID PRN (Reason: Pain) RF: 0 Discharge Orders: Discharge Order (Routine); Ordered 07/31/20 Ordered By: Leonardo Osorio/Other Patient Handouts: After a Hip Fracture: Common Questions, Enoxaparin injection Admission Data Admit Date/Time: 07/27/20 23:40 Attending Provider: Leonardo Parada Admit Provider: Eddie Sierra Primary Care Provider: Alexy Giraldo III Other Providers: Leonardo Parada ; Eddie Sierra ; Neo Brown ; [facility] ; [facility] ; [facility] Other Interventions: Discharge Summary Assessment (RN) Last Done: 07/31/20 11:48 Coding Level of Care Code D/C Day Management >30 mins Diagnoses Closed fracture of right hip S72.001A Encounter type: initial encounter Fall W19.XXXA Encounter type: initial encounter Impaired fasting glucose R73.01 Hypertension I10 Hypercholesteremia E78.00 Hypothyroidism E03.9 DVT prophylaxis Z29.9
== END 2020-07-31 16:46 | disposition home health service (06) | DRG 481 ==
LOC: ED 20:54 → SUATTDRO 23:40 → 3N 23:40
DX: S72.141A Displaced intertrochanteric fracture of right femur, initial encounter for closed fracture; Z79.899 Other long term (current) drug therapy; E03.9 Hypothyroidism, unspecified; W00.0XXA Fall on same level due to ice and snow, initial encounter; Z79.82 Long term (current) use of aspirin; R73.01 Impaired fasting glucose; I10 Essential (primary) hypertension; E78.00 Pure hypercholesterolemia, unspecified; D62 Acute posthemorrhagic anemia